=== PATIENT | male | born 1935 | race Caucasian/White ===

== ENCOUNTER 2018-01-12 20:26 | Inpatient (IN) | payer MEDICARE, SELFPAY ==
[2018-01-12 22:00] VITALS: BMI 24.3
[2018-01-12] MEDS ORDERED: Guaifenesin DM 100-10/5 ML UDCUP PO PRN (23:30)
[2018-01-12] MEDS ORDERED: Sodium Chloride 0.9% 1,000 ML IV SCH (23:30)
[2018-01-12] MEDS ORDERED: Senokot 8.6 MG TAB PO PRN (23:30)
[2018-01-12] MEDS ORDERED: Acetaminophen 325 MG TAB PO PRN (23:30)
[2018-01-12] MEDS ORDERED: Temazepam 15 MG CAP PO SCH (23:30)
[2018-01-12] MEDS ORDERED: Enoxaparin Sodium 80 MG/0.8 ML SYRINGE SC SCH (23:45)
[2018-01-12] MEDS ORDERED: Aspirin 325 MG TAB PO SCH (23:45)
[2018-01-12] MEDS: Nitroglycerin 2% Ointment 1 INCH/1 GM Packet TOP SCH (23:50)
[2018-01-13 01:17] LABS: Troponin I 8.974 ng/mL (< 0.028)
[2018-01-13] MEDS ORDERED: Clopidogrel Bisulfate 300 MG TAB PO SCH (02:00)
[2018-01-13 04:56] LABS: #Eosinphils 0.1 thou/uL (0.0-0.7); #Lymphocytes 1.2 thou/uL (1.20-3.40); #Monocytes 0.7 thou/uL (0.11-0.59); #Neutrophils 10.2 thou/uL (1.40-6.50); %Basophils 0.3 % (0.0-1.0); %Eosinophils 0.5 % (0.0-10.0); %Monocytes 5.7 % (0.0-10.0); %Neutrophils 83.6 % (42.0-75.0); Mean Corpuscular HGB CONC 34.5 g/dL (32.0-36.0); Mean Corpuscular Hemoglobin 31.2 pg (27.0-31.0); Mean Corpuscular Volume 90.4 fl (80.0-94.0); Mean Platelet Volume 7.6 fL (7.4-10.4); Platelet Count 234 thou/uL (130-400); RBC Distribution Width 11.1 % (11.5-14.5); Red Blood Cell (RBC) Count 4.18 mill/uL (4.70-6.10); White Blood Cell (WBC) Count 12.3 thou/uL (4.8-10.8)
[2018-01-13 05:17] LABS: ALT (SGPT) 32 U/L (8-55); AST (SGOT) 188 U/L (5-34); Albumin 3.7 g/dL (3.4-4.8); Alkaline Phosphatase 44 U/L (40-150); Anion Gap 14 mmol/L (10-20); BUN (Urea Nitrogen) 20 mg/dL (8.4-25.7); Bilirubin, Total 0.6 mg/dL (0.2-1.2); Calc. Creatinine Clearance 87 mL/min (70-130); Calcium 9.1 mg/dL (7.8-10.44); Carbon Dioxide 24 mmol/L (23-31); Chloride 103 mmol/L (98-107); Cholesterol 176 mg/dl (< 200 Desired); Estimated GFR-MDRD Greater than 90; Glucose 116 mg/dL (83-110); HDL Cholesterol 44 mg/dL (>60 Neg Risk); LDL Cholesterol, Calculated 112 mg/dL; Potassium 4.3 mmol/L (3.5-5.1); Protein, Total 6.7 g/dL (5.8-8.1); Sodium 137 mmol/L (136-145); Triglycerides 100 mg/dL (Less than 150)
[2018-01-13] MEDS ORDERED: Metoprolol Tartrate 5 MG/5 ML VIAL IVP SCH (05:24)
[2018-01-13] MEDS ORDERED: Magnesium 2 GM/NS 0.9% 100 ML 2 GM in Premix Bag 1 BAG IVPB SCH (05:30)
--- NOTE | 2018-01-13 06:13 | HP ---
REASON FOR ADMISSION: Non-STEMI. HISTORY OF PRESENTING ILLNESS: Patient gives history of flying from [facility] to [place] yesterday. He arrived yesterday evening after a 15-hour flight. The patient this morning developed retrosternal pressure-like sensation. He initially thought it was heartburn. This happened around 4:00 p.m. 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 No complaints of palpitation, PND, or orthopnea. Patient states he has had 3 stents placed to his heart, 2 years back in [place]. He also mentions that he has had myocardial infarction 17 years back. Patient was living in [place] and moved 10 years back to [facility]. The patient has a dry cough, but no expectoration. No fever. 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 PAST MEDICAL AND SURGICAL HISTORY: History of coronary artery disease 2 years back with 3 stents put-in in [place], has had ND 17 years ago, hypertension, dyslipidemia, left carotid endarterectomy done 10 years back. CURRENT MEDICATIONS: Norvasc 5 mg daily, aspirin 81 mg on every 2-3 days. He does not take it routinely due to him being very sensitive for ecchymosis on his forearms. He took Brilinta for 1 year after stents being put and stopped it. Carvedilol extended release 12.5 mg daily, Lipitor 40 mg daily, losartan with hydrochlorothiazide 50/12.5 mg daily. ALLERGIES: No known drug allergies. PERSONAL HISTORY: Does not abuse alcohol or drugs. No history of smoking. FAMILY HISTORY: Mother lived up to 94 years and of old age. Father of massive ND at the age of 45 years. Patient has 3 children, one is a physician, but works in a pharmaceutical [employer], has another kid who is contracts attorney and the third one is a CPA. All live in [facility]. REVIEW OF SYSTEMS: The following complete review of systems was negative, unless otherwise mentioned in the HPI or below: Constitutional: Weight loss or gain, ability to conduct usual activities. Skin: Rash, itching. Eyes: Double vision, pain. ENT/Mouth: Nose bleeding, neck stiffness, pain, tenderness. Cardiovascular: Palpitations, dyspnea on exertion, orthopnea. Respiratory: Shortness of breath, wheezing, cough, hemoptysis, fever, or night sweats. Gastrointestinal: Poor appetite, abdominal pain, heartburn, nausea, vomiting, constipation, or diarrhea. Genitourinary: Urgency, frequency, dysuria, nocturia. Musculoskeletal: Pain, swelling. Neurologic/Psychiatric: Anxiety, depression. Allergy/Immunologic: Skin rash, bleeding tendency. PHYSICAL EXAMINATION: GENERAL: The patient is an 82-year-old male who is currently not in any acute distress and is chest pain free at present. VITAL SIGNS: Blood pressure 166/74, pulse 74 per minute, respiratory rate is 20 per minute, temperature 97.7 degrees Fahrenheit, saturating 94% on room air. NECK: Supple, no elevated JVD. HEENT: Extraocular muscles intact. Pupils reacting to light. Oral cavity mucous membranes are moist. No exudates or congestion. CARDIOVASCULAR SYSTEM: S1, S2 heard. Regular rhythm. RESPIRATORY SYSTEM: Air entry 1+ bilateral. Scattered rhonchi plus no rales or wheezes. ABDOMEN: Soft, bowel sounds heard. No tenderness, rigidity, or guarding. EXTREMITIES: No peripheral edema or calf tenderness. VASCULAR SYSTEM: Peripheral pulses 2+ bilateral. No ischemic ulcerations or gangrene. CENTRAL NERVOUS SYSTEM: No gross focal deficits seen. Patient is alert, awake , oriented well. PSYCHIATRIC: The patient's mood is euthymic. No hallucinations or delusions. LABORATORY AND X-RAY FINDINGS: Please note the patient has had all his first set of lab work done at [facility]. Had a white count of 11 , H&H 13 and 39 with 66% neutrophils, platelet count is 245. First set of troponin was less than 0.05. Subsequent two sets of 1.0 on 8.974. CK-MB was 4.2. BNP was 360. Albumin 4.1. ALT 14, AST 22, amylase 59, total bilirubin 0.7. Serum glucose 100, BUN 18, creatinine 1.1. CK level is 50. Sodium 135, potassium 3.4, chloride 100, serum bicarbonate 27. CT angio chest done at [facility] showed no evidence of pulmonary embolus. There was mild ground glass change, which is nonspecific could be seen with pulmonary edema. Initial EKG showed normal sinus rhythm at around 70 beats per minute with T inversion seen in inferior wall leads II, III, aVF. There is also RBBB seen. A subsequent EKG done on arrival here shows similar findings. QRS duration was 140 milliseconds. CLINICAL IMPRESSION AND PLAN: Patient will be admitted to telemetry for non-ST elevation myocardial infarction with prior history of coronary artery disease and having had 3 stents put in, the last 2 years or so. 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 He has increasing troponin levels, but patient is currently asymptomatic. He has been given a full dose of aspirin. We will also load him with Plavix 300 mg 1 dose now and Lovenox 80 mg subcutaneous q.12 hourly starting now. He will be on normal saline at 60 mL per hour. Nitro paste half-inch q.8 hourly. We will continue his Coreg at 6.25 mg twice daily, Lipitor 40 mg at bedtime. Echo with 2D Doppler for LV function and cardiology consultation with Dr. Moss will be requested. Please note I have seen and examined patient on 01/12/2018. CODE STATUS: FULL and power of contracts attorney is his children here in [place]. ROSA
[2018-01-13] MEDS ORDERED: Heparin 10,000 UNITS/1 ML VIAL ONE ×3 (06:43→08:50)
[2018-01-13] MEDS ORDERED: Heparin 0 ML ONE (06:43)
[2018-01-13] MEDS ORDERED: Lidocaine 1% (PF) 30 ML VIAL ONE ×2 (06:44→07:40)
[2018-01-13] MEDS ORDERED: Sodium Chloride 0.9% 1,000 ML IV SCH ×2 (07:30→09:05)
[2018-01-13] MEDS ORDERED: Communication Order-Pharmacy FS SCH (07:30)
[2018-01-13] MEDS ORDERED: Fentanyl 100 MCG/2 ML VIAL ONE ×4 (07:40→11:26)
[2018-01-13] MEDS ORDERED: Midazolam HCl 2 mg/2 ml Vial ONE ×4 (07:41→10:27)
[2018-01-13] MEDS: Albuterol Sulfate 1.25 MG/3 ML NEB NEB SCH ×3 (07:47→22:42)
[2018-01-13] MEDS ORDERED: Aspirin 325 MG TAB PO SCH (08:00)
--- NOTE | 2018-01-13 08:00 | CON ---
DATE OF CONSULTATION: 01/13/2018 HISTORY: Luis Carlos Valdez is an 82-year-old white male who initially was from [facility]. He states that he had a myocardial infarction 30 years ago and was told that one of his vessels was totally occluded, but filled via collaterals and nothing further was done. Then 2 years ago he said he again had a myocardial infarction and underwent catheterization and had 3 stents placed. He is uncertain if these were different arteries or all in the same artery. He was placed on Brilinta and took this for 1 year. Since that time, he only takes aspirin intermittently and may stop up to a week at a time due to arm bruising. He has not had any chest discomfort until yesterday. He arrived in [place] after a 15 hour flight from [facility] and came to [employer] for business. Then, at 4:00 p.m., he had onset of central chest burning extending into the epigastric area, but no shortness of breath, nausea, vomiting or diaphoresis. He went to [facility] ER and then was transferred here. He has had positive cardiac enzymes. He also has had several episodes of nonsustained ventricular tachycardia up to 14 beats. PAST MEDICAL HISTORY: Coronary artery disease, hypertension, hypercholesterolemia. No history of diabetes. OPERATIONS: Left carotid endarterectomy. MEDICATIONS: Norvasc 5 mg daily, aspirin 81 mg which he does not take on a daily basis, carvedilol extended release 12.5 daily, losartan/ hydrochlorothiazide 50/12.5 daily, presumably atorvastatin 40 mg daily. ALLERGIES: None. SOCIAL HISTORY: Does not smoke or drink. FAMILY HISTORY: Father of myocardial infarction at age 45. REVIEW OF SYSTEMS: Twelve point review of systems otherwise unremarkable. PHYSICAL EXAMINATION: VITAL SIGNS: Blood pressure 143/75, pulse 76. HEENT: PERRL. NECK: Supple. LUNGS: Chest is clear. CARDIAC: S1, S2 normal, without any S3, S4 or murmurs. Carotid upstroke is normal without bruits. Dorsalis pedis and posterior tibial pulses are intact. ABDOMEN: Normal bowel sounds. EXTREMITIES: Revealed no clubbing, cyanosis or edema. NEUROLOGIC: Grossly intact. LABORATORY: EKGs revealed normal sinus rhythm with an inferior infarction and right bundle branch block. No acute changes were seen. Hemoglobin 13.0, hematocrit 37.8, white count 12,300, platelets 234,000. Sodium 137, potassium 4.3, chloride 103, carbon dioxide 24, BUN 20, creatinine 0.8, glucose 116, AST is elevated at 188, ALT 32. Troponin I is up to 8.974. Cholesterol 176, triglycerides 100, HDL 44, LDL 112. IMPRESSION: 1. [id number] elevation myocardial infarction with troponin of 8.974. 2. Nonsustained ventricular tachycardia, 3 episodes. 3. History of myocardial infarction 30 years ago with totally occluded vessel with collateral filling according to the patient. 4. Placement of 3 stents in [facility] 2 years ago. 5. Hypertension. 6. Hyperlipidemia with LDL of 112. 7. Noncompliance with Aspirin. RECOMMENDATIONS: It was recommended to Mr. Valdez that he undergo cardiac catheterization. Risks of this were discussed including , myocardial infarction, dye reaction, vascular injury, CVA, transfusion, limb loss, renal loss, etc. Risk of intervention with PTCA and stent placement were discussed including , myocardial infarction, emergent CABG, restenosis, stent thrombosis, vessel perforation, etc. He understands and agrees to proceed. ROSA
[2018-01-13] MEDS ORDERED: Aggrastat 12.5 MG/250 ML 250 ML ONE (08:07)
[2018-01-13] MEDS ORDERED: TICAGRELOR 90 MG TABLET ONE (08:13)
[2018-01-13] MEDS ORDERED: Enoxaparin Sodium 80 MG/0.8 ML SYRINGE SC SCH ×2 (09:00)
[2018-01-13] MEDS ORDERED: Morphine 4 MG/ML Carpuject SLOW IVP PRN (09:02)
[2018-01-13] MEDS ORDERED: Nitroglycerin 0.4 MG TAB (25 Tab Bottle) SL PRN (09:02)
[2018-01-13] MEDS ORDERED: Milk Of Magnesia 30 ML UDCUP PO PRN (09:02)
[2018-01-13] MEDS ORDERED: Mag-Al 1200 mg/1200 mg/30 ML UDCUP PO PRN (09:02)
[2018-01-13] MEDS ORDERED: Aggrastat 12.5 MG/250 ML 250 ML IVPB SCH (09:15)
[2018-01-13] MEDS ORDERED: Amlodipine 5 MG TAB PO SCH ×2 (09:15)
[2018-01-13] MEDS ORDERED: Hydrocortisone Sod Succ/PF 100 mg/2 ml Vial ONE (09:42)
[2018-01-13] MEDS ORDERED: diphenhydrAMINE 50 MG/ML VIAL ONE ×2 (09:42→13:04)
[2018-01-13] MEDS ORDERED: Morphine 4 MG/ML VIAL ONE (09:46)
[2018-01-13] MEDS ORDERED: Furosemide 40 MG/4 ML VIAL ONE (09:51)
[2018-01-13] MEDS ORDERED: Iopamidol 370 76% 100 ML VIAL ONE (10:02)
[2018-01-13] MEDS ORDERED: Iopamidol 370 76% 50 ML VIAL FS ONE (10:02)
--- NOTE | 2018-01-13 10:08 | PDOC.PN ---
- Subjective Encounter Start Date: 01/13/18 Encounter Start Time: 10:07 82 M admitted with chest pain and elevated troponin- NSTEMI. Taken to liaison inspection laboratory assistant today for catheterization. - Objective Resuscitation Status: Resuscitation Status FULL:Full Resuscitation MAR Reviewed: Yes Vital Signs & Weight: Vital Signs (12 hours) Temp Pulse Resp BP BP Pulse Ox 01/13/18 07:36 98.0 F 81 18 156/69 H 96 01/13/18 07:10 98.0 F 81 18 156/69 H 96 01/13/18 05:43 76 143/75 H 01/13/18 05:36 76 145/68 H 01/13/18 05:12 78 18 141/68 H 96 01/13/18 03:15 98.2 F 83 16 154/75 H 94 L 01/12/18 23:30 94 L 01/12/18 23:25 98.0 F 75 20 150/70 H 94 L 01/12/18 22:10 94 L Weight Weight 184 lb 14.4 oz I&O: 01/12/18 01/13/18 01/14/18 06:59 06:59 06:59 Intake Total 625 100 Output Total 400 Balance 225 100 Result Diagrams: 01/13/18 04:01 01/13/18 04:01 Phys Exam - Physical Examination Constitutional: NAD HEENT: moist MMs, sclera anicteric, oral pharynx no lesions Neck: supple, full ROM Respiratory: no wheezing, no rales, no rhonchi, clear to auscultation bilateral Cardiovascular: RRR, no significant murmur, no rub Gastrointestinal: soft, non-tender, no distention, positive bowel sounds Musculoskeletal: no edema, pulses present Neurological: non-focal, moves all 4 limbs Psychiatric: normal affect, A&O x 3 Skin: no rash, normal turgor Dx/Plan (1) NSTEMI (non-ST elevated myocardial infarction) Code(s): I21.4 - NON-ST ELEVATION (NSTEMI) MYOCARDIAL INFARCTION Status: Acute Comment: Scheduled for cardiac catheterization. Cardiology on board. Recs appreciated. (2) CAD (coronary artery disease) Code(s): I25.10 - ATHSCL HEART DISEASE OF [place] CORONARY ARTERY W/O ANG PCTRS Status: Chronic Qualifiers: Coronary Disease-Associated Artery/Lesion type: unspecified vessel or lesion type [place] vs. transplanted heart: [place] heart Associated angina: with unstable angina Qualified Code(s): I25.110 - Atherosclerotic heart disease of [place] coronary artery with unstable angina pectoris (3) S/P angioplasty with stent Code(s): Z95.9 - PRESENCE OF CARDIAC AND VASCULAR IMPLANT AND GRAFT, UNSP Status: Chronic (4) HTN (hypertension) Code(s): I10 - ESSENTIAL (PRIMARY) HYPERTENSION Status: Chronic Qualifiers: Hypertension type: essential hypertension Qualified Code(s): I10 - Essential (primary) hypertension Comment: Fair control but not at goal. Will resume home medications. (5) HLD (hyperlipidemia) Code(s): E78.5 - HYPERLIPIDEMIA, UNSPECIFIED Status: Chronic Qualifiers: Hyperlipidemia type: mixed hyperlipidemia Qualified Code(s): E78.2 - Mixed hyperlipidemia - Plan cont current plan of care, out of bed/ambulate, DVT proph w/lovenox * . Review of Systems - Medications/Allergies Allergies/Adverse Reactions: Allergies Allergy/AdvReac Type Severity Reaction Status Date / Time No Known Allergies Allergy Verified 01/12/18 21:25 Medications: Current Medications Acetaminophen (Tylenol) 650 mg PO Q4H PRN PRN Reason: Headache/Fever or Pain Al Hydroxide/Mg Hydroxide (Maalox) 30 ml PO Q3H PRN PRN Reason: Indigestion Albuterol Sulfate (Albuterol Sulfate) 1.25 mg NEB [id number] JOURDAN Last Admin: 01/13/18 07:47 Dose: Not Given Amlodipine Besylate (Norvasc) 5 mg PO DAILY [facility] Aspirin (Aspirin Chewable) 81 mg PO DAILY [facility] Atorvastatin Calcium (Lipitor) 80 mg PO HS [facility] Carvedilol (Coreg) 6.25 mg PO BID-WM [facility] Famotidine (Pepcid) 20 mg PO BID JOURDAN Guaifenesin/Dextromethorphan (Robitussin Dm) 15 ml PO Q4H PRN PRN Reason: Cough HCTZ/Losartan Potassium (Hyzaar 50/12.5) 1 tab PO DAILY JOURDAN Tirofiban/Sodium Chloride (Aggrastat 12.5 Mg/250 Ml) 250 mls @ 0 mls/hr IVPB INF JOURDAN; As Directed PRN Reason: Protocol Stop: 01/14/18 09:00 Sodium Chloride (Normal Saline 0.9%) 1,000 mls @ 125 mls/hr IV .Q8H JOURDAN Stop: 01/13/18 15:00 Magnesium Hydroxide (Milk Of Magnesium) 30 ml PO Q12H PRN PRN Reason: Constipation Miscellaneous Information (Communication Order-Pharmacy) 0 each FS ASDIR JOURDAN Morphine Sulfate (Morphine) 2 mg SLOW IVP Q4H PRN PRN Reason: Moderate Pain (4-6) Morphine Sulfate (Morphine) 4 mg SLOW IVP Q4H PRN PRN Reason: Severe Pain (7-10) Nitroglycerin (Nitrostat) 0.4 mg SL Q5MIN PRN PRN Reason: Chest Pain Senna (Senokot) 2 tab PO HSPRN PRN PRN Reason: Constipation Sodium Chloride (Flush - Normal Saline) 10 ml IVF Q12HR JOURDAN Sodium Chloride (Flush - Normal Saline) 10 ml IVF PRN PRN PRN Reason: Saline Flush Ticagrelor (Brilinta) 90 mg PO BID JOURDAN
[2018-01-13] MEDS ORDERED: Propofol BOLUS 1,000 MG/100 ML VIAL IV PRN (10:32)
[2018-01-13] MEDS ORDERED: DISCONTINUE PREVIOUS NARCOTIC PAIN MEDICATIONS AND BENZODIAZEPINES FS SCH (10:32)
[2018-01-13] MEDS ORDERED: Fentanyl BOLUS 250 ML IVPB PRN (10:32)
[2018-01-13] MEDS ORDERED: Propofol 1,000 MG/100 ML VIAL IV PRN (10:32)
[2018-01-13] MEDS ORDERED: Morphine 4 MG/ML VIAL SLOW IVP PRN (10:32)
[2018-01-13] MEDS ORDERED: Lorazepam 2 MG/ML VIAL SLOW IVP PRN (10:32)
[2018-01-13] MEDS ORDERED: fentaNYL Citrate/PF 2,000 MCG in Sodium Chloride 0.9% 60 ML IV SCH (10:33)
[2018-01-13] MEDS ORDERED: Succinylcholine Chloride 20 MG/ML 10 ml SYRINGE FS ONE (10:45)
[2018-01-13] MEDS ORDERED: Sodium Chloride For Inhalation 0.9% 3 ML NEB ONE ×2 (11:35→11:37)
--- NOTE | 2018-01-13 11:56 | RAD ---
CHEST ONE VIEW: HISTORY: Intubation. COMPARISON: None. FINDINGS: Extensive interstitial and developing alveolar opacities throughout the lungs. The patient is intuba levon with the endotracheal tube tip at the level of the clavicles. The enteric tube tip is at the gas tric body. The heart size is at the upper limits of normal. No pneumothorax or large effusion. IMPRESSION: Extensive interstitial and developing alveolar opacities throughout the lungs, which can be seen with acute edema, acute respiratory distress syndrome, or hemorrhage. POS: [facility]
[2018-01-13] MEDS ORDERED: Pantoprazole 40 MG VIAL IVP SCH (12:00)
[2018-01-13] MEDS ORDERED: Labetalol HCl 100 MG/20 ML VIAL SLOW IVP PRN (12:23)
[2018-01-13] MEDS ORDERED: hydrALAZINE 20 MG/ML VIAL SLOW IVP PRN (12:23)
--- NOTE | 2018-01-13 12:33 | CON ---
DATE OF CONSULTATION: 01/13/2018 SERVICE: Pulmonary Medicine. REASON FOR CONSULTATION: Flash pulmonary edema. HISTORY OF PRESENT ILLNESS: The patient is an 82-year-old white male with past medical history signi ficant for some form of coronary artery disease. He presented to the emergency department because of a non-ST elevation [place]. He recently had significant travel. After he got here from [place], he start ed having retrosternal chest discomfort. He presented to the Emergency Department and the cardiac en zymes were slightly elevated. He went down for cardiac catheterization today. Following this study, he had abrupt decompensation. He went into it on very little oxygen, but then required almost 100% oxygen with a PEEP of 10. He started bringing up frothy pulmonary edema. This was associated with v isra elevated blood pressures. Subsequently, reintubated, and will be arriving in the ICU shortly. PAST MEDICAL HISTORY: 1. Coronary artery disease. 2. Hypertension. 3. Dyslipidemia. PAST SURGICAL HISTORY: 1. Percutaneous coronary intervention x3. 2. Carotid endarterectomy. ALLERGIES: No known drug allergies. MEDICATIONS: List of his inpatient medications were reviewed and heavily modified. SOCIAL HISTORY: Negative for alcohol, tobacco or illicit drug use. FAMILY HISTORY: Noncontributory. ALLERGIES: No known drug allergies. REVIEW OF SYSTEMS: This cannot be obtained as the patient is currently intubated and sedated. PHYSICAL EXAMINATION: VITAL SIGNS: Afebrile, pulse 81, blood pressure 156/96, respirations 18, saturation 96% on room air. GENERAL: The patient is intubated and sedated. He responds appropriately to noxious stimuli in uppe r and lower extremities. HEENT: Pupils are pinpoint, but do react sluggishly. Normocephalic, atraumatic. Sclerae are white. Conjunctivae pink. Oral mucosa is moist without lesions. LUNGS: Frothy pulmonary edema is in the circuit. Excellent air entry. There is slightly prolonged expiratory phase. Crackles are present throughout bilateral lung wong. HEART: Normal rate and regular. ABDOMEN: Soft, nontender, nondistended. Bowel sounds are positive. MUSCULOSKELETAL: No cyanosis or clubbing. There is no pitting in the bilateral lower extremities. NEUROLOGIC: Grossly nonfocal. LABORATORY DATA: WBC 12.3, hemoglobin 13.0, platelets 234,000. ACT 236. Basic metabolic profile an d liver function studies are unremarkable. Cardiac enzymes were 1.0 and is now 8.9. Magnesium falls within the normal limits. ASSESSMENT: 1. Acute hypoxic respiratory failure. 2. Flash pulmonary edema. 3. Non-ST elevation myocardial infarction. 4. Nonsustained ventricular tachycardia, 3 episodes. 5. History of myocardial infarction with coronary artery disease. 6. Hypertensive emergency. PLAN: The patient will remain in the ICU. We will decrease FiO2 and PEEP through time. Tight blood pressure control is warranted. We will get an echocardiogram with particular focus on the mitral va lve. Pulmonary or Critical Care will continue to follow very closely while patient remains in the [facility]. CRITICAL CARE TIME: 30 minutes.
[2018-01-13] MEDS ORDERED: Heparin 10,000 UNITS/ 10 ML VIAL ONE (13:04)
--- NOTE | 2018-01-13 13:21 | EKG ---
Test Reason : TIME REPEAT Blood Pressure : / mmHG Vent. Rate : 083 BPM Atrial Rate : 083 BPM P-R Int : 164 ms QRS Dur : 140 ms QT Int : 414 ms P-R-T Axes : 064 085 048 degrees QTc Int : 486 ms Normal sinus rhythm Right bundle branch block Possible Inferior infarct (cited on or before 12-JAN-2018) Abnormal ECG When compared with ECG of 13-JAN-2018 10:12, (Unconfirmed) No significant change was found Confirmed by DECLAN OLSON ([id number]) on 01/13/2018 1:21:30 PM Referred By: RADHA Confirmed By:DECLAN OLSON
--- NOTE | 2018-01-13 13:28 | EKG ---
Test Reason : POST Blood Pressure : / mmHG Vent. Rate : 101 BPM Atrial Rate : 101 BPM P-R Int : 170 ms QRS Dur : 138 ms QT Int : 396 ms P-R-T Axes : 073 094 040 degrees QTc Int : 513 ms Sinus tachycardia Possible Left atrial enlargement Right bundle branch block Possible Inferior infarct (cited on or before 12-JAN-2018) Abnormal ECG When compared with ECG of 13-JAN-2018 01:49, (Unconfirmed) No significant change was found Confirmed by DECLAN OLSON ([id number]) on 01/13/2018 1:28:14 PM Referred By: RADHA Confirmed By:DECLAN OLSON
[2018-01-13 13:32] LABS: Actual Bicarbonate (HCO3a) 21.4 mEq/L (22-28); Base Excess (BEa) -4.8 mEq/L (-2.0 to +3.0); CO2 Tension 43.8 mmHg (35.0-45.0); Hematocrit-ABG 45.1 % (42.0-52.0); Hemoglobin (Hb) 14.1 g/dL (14.0-18.0); O2 Tension (PaO2) 85.4 mmHg (> 60.0); pH, Arterial 7.31 (7.35-7.45)
[2018-01-13 13:33] LABS: Calcium, Ionized 1.1 mmol/L (1.12-1.30); Puncture Site LRA
--- NOTE | 2018-01-13 13:33 | EKG ---
Test Reason : Blood Pressure : / mmHG Vent. Rate : 081 BPM Atrial Rate : 081 BPM P-R Int : 168 ms QRS Dur : 144 ms QT Int : 430 ms P-R-T Axes : 074 085 017 degrees QTc Int : 499 ms Poor data quality, interpretation may be adversely affected Normal sinus rhythm Right bundle branch block Inferior infarct (cited on or before 12-JAN-2018) Abnormal ECG When compared with ECG of 12-JAN-2018 22:16, (Unconfirmed) Questionable change in initial forces of Inferior leads Confirmed by DECLAN OLSON ([id number]) on 01/13/2018 1:33:26 PM Referred By: IZZY Confirmed By:DECLAN OLSON
--- NOTE | 2018-01-13 13:34 | EKG ---
Test Reason : Blood Pressure : / mmHG Vent. Rate : 076 BPM Atrial Rate : 076 BPM P-R Int : 146 ms QRS Dur : 138 ms QT Int : 440 ms P-R-T Axes : 040 065 012 degrees QTc Int : 495 ms Normal sinus rhythm Right bundle branch block Inferior infarct , age undetermined Abnormal ECG No previous ECGs available Confirmed by DECLAN OLSON ([id number]) on 01/13/2018 1:34:25 PM Referred By: VLADIMIR Confirmed By:DECLAN OLSON
[2018-01-13] MEDS: Carvedilol 6.25 MG TAB PO SCH ×2 (13:39→18:05)
[2018-01-13] MEDS: Famotidine 20 MG TAB PO SCH ×2 (13:39→21:08)
[2018-01-13] MEDS: Sodium Chloride 0.9% 1,000 ML IV SCH (13:44)
[2018-01-13] MEDS ORDERED: DOPamine 400 MG/D5W 250 ML 250 ML IVPB SCH (13:45)
[2018-01-13 15:13] LABS: Troponin I Greater than 45.000 ng/mL (< 0.028)
[2018-01-13 15:29] LABS: Hemoglobin 13.7 g/dL (14.0-18.0)
[2018-01-13] MEDS: Nitroglycerin 2% Ointment 1 INCH/1 GM Packet TOP SCH (16:07)
--- NOTE | 2018-01-13 19:07 | CCL ---
PROCEDURE: 1, Left heart catheterization 2. Selective coronary arteriography 3. Left ventriculography 4. Thrombectomy of the obtuse marginal 1 and stent placement in the obtuse marginal 1. INDICATION: Non-STEMI. Patient was brought to cardiac slab puller and the right groin was prepped and draped in usual fashion. 1% lidocaine was infiltrated. A 6-Honduran sheath was placed into the right femoral artery. A 6-Honduran Preet left 4 followed by 6- [place] Preet right 4 was used for coronary arteriography. A 6-Honduran left 4 guide was inserted along with floppy choice wire. This was advanced into the distal first obtuse marginal. A Pronto catheter was used with removal of large amount of thrombotic material. The Pronto catheter was then removed and the thrombus appeared to have totally cleared. Synergy 3.0 x 12 mm stent was then positioned and deployed in the first obtuse marginal. This was postdilated with Emerge NC 3.5 x 8 mm balloon. Final result was excellent. The guide catheter, wire and balloon were removed. A 6-Honduran angulated pigtail was inserted and pressure obtained. Left ventriculogram was performed using 30 mL of contrast at 12 mL per second in an LYNN 30 degree projection. Pressure obtained and the pigtail was removed. Sheath sutured in place. During the procedure, the patient received Versed 1 mg and fentanyl 25 mg. Also, he was given Brilinta 180 mg p.o., multiple doses of intravenous heparin and was started on Aggrastat. The sheath sutured in place. The patient was transferred to the PCU. RESULTS: PRESSURES Aorta 148/58, mean of 98. Left ventricle 152/33. CORONARY ARTERIOGRAPHY: 1. Left main was normal. 2. The LAD had a 60% mid stenosis and a 50% distal stenosis. 3. The circumflex had a stent extending from the proximal circumflex into the first obtuse marginal. There was an 80% lesion in the proximal part of the first obtuse marginal. There was a large amount of thrombotic material. The thrombus was pproximately 3-4 cm long and distal to the stenosis. 4. The ramus had a 20% lesion. 5. The right coronary was totally occluded and filled retrograde from the left (occurred at approximately 52 years of age). INTERVENTION RESULTS: The initial first obtuse marginal had an 80% stenosis with large amount of thrombotic material. The thrombotic material was removed and the lesion was reduced to 0%. LEFT VENTRICULOGRAM: There was mild global hypokinesis with inferobasal akinesis and moderate mitral regurgitation. Ejection fraction was 35-40%. IMPRESSION: 1. Three-vessel coronary artery disease. 2. Moderate left ventricular dysfunction. 3. Moderate mitral regurgitation. 4. Successful thrombectomy and drug-eluting stent placement in the first obtuse marginal. MTDD
[2018-01-13] MEDS ORDERED: Atorvastatin Calcium 40 MG TAB PO SCH (21:00)
[2018-01-13] MEDS: Pantoprazole 40 MG VIAL IVP SCH (21:07)
[2018-01-13] MEDS: Atorvastatin Calcium 40 MG TAB PO SCH (21:08)
[2018-01-13] MEDS: TICAGRELOR 90 MG TABLET PO SCH (21:22)
[2018-01-14 05:47] LABS: #Eosinphils 0.1 thou/uL (0.0-0.7); #Monocytes 1.2 thou/uL (0.11-0.59); #Neutrophils 12.9 thou/uL (1.40-6.50); %Basophils 0.2 % (0.0-1.0); %Eosinophils 0.3 % (0.0-10.0); %Lymphocytes 12.1 % (21.0-51.0); %Monocytes 7.5 % (0.0-10.0); %Neutrophils 79.8 % (42.0-75.0); Hemoglobin 11.3 g/dL (14.0-18.0); Mean Corpuscular HGB CONC 33.7 g/dL (32.0-36.0); Mean Corpuscular Hemoglobin 30.8 pg (27.0-31.0); Mean Corpuscular Volume 91.5 fl (80.0-94.0); Mean Platelet Volume 8.1 fL (7.4-10.4); Platelet Count 205 thou/uL (130-400); RBC Distribution Width 11.6 % (11.5-14.5); Red Blood Cell (RBC) Count 3.66 mill/uL (4.70-6.10); White Blood Cell (WBC) Count 16.2 thou/uL (4.8-10.8)
[2018-01-14] MEDS: Sodium Chloride 0.9% 1,000 ML IV SCH ×2 (05:57→05:58)
[2018-01-14 06:13] LABS: ALT (SGPT) 31 U/L (8-55); AST (SGOT) 123 U/L (5-34); Alkaline Phosphatase 32 U/L (40-150); Anion Gap 13 mmol/L (10-20); BUN (Urea Nitrogen) 25 mg/dL (8.4-25.7); Bilirubin, Total 0.7 mg/dL (0.2-1.2); Calc. Creatinine Clearance 73 mL/min (70-130); Calcium 8.2 mg/dL (7.8-10.44); Carbon Dioxide 21 mmol/L (23-31); Chloride 108 mmol/L (98-107); Estimated GFR-MDRD 75; Globulin 2.4 g/dL (2.4-3.5); Glucose 106 mg/dL (83-110); Potassium 4.4 mmol/L (3.5-5.1); Protein, Total 5.4 g/dL (5.8-8.1); Sodium 138 mmol/L (136-145)
[2018-01-14] MEDS: Albuterol Sulfate 1.25 MG/3 ML NEB NEB SCH ×3 (06:52→22:13)
[2018-01-14 08:35] LABS: CKMB 53.8 ng/mL (0-6.6); Troponin I 40.892 ng/mL (< 0.028)
--- NOTE | 2018-01-14 08:42 | RAD ---
PORTABLE CHEST: DATE: 01/14/18. PROVIDED CLINICAL HISTORY: Pulmonary edema. FINDINGS: Comparison is made with the examination performed 01/13/18. The cardiac silhouette appears enlarged w hich may be at least partially on the basis of portable technique. Endotracheal tube and enteric cat heter are again seen in similar positions. There is persistent but improved bilateral airspace disea se. There is no pleural fluid or pneumothorax apparent. IMPRESSION: Persistent but improved findings compatible with pulmonary edema. POS: OFF
[2018-01-14] MEDS ORDERED: Amlodipine 5 MG TAB PO SCH (09:00)
[2018-01-14] MEDS ORDERED: Clopidogrel Bisulfate 75 MG TAB PO SCH (09:00)
--- NOTE | 2018-01-14 10:47 | PRG ---
DATE OF SERVICE: 01/14/2018 SERVICE: Pulmonary Medicine. INTERVAL HISTORY: The patient had a dramatic improvement in his respiratory status overnight. His oxygen saturations are now excellent on just basically 21 % FiO2 and a PEEP of 5. He is awake and alert and cooperative on mechanical ventilation. He is on a spontaneous breathing trial currently. He currently denies any fevers, chills, nausea or vomiting. There were no significant overnight events. PHYSICAL EXAMINATION: VITAL SIGNS: Afebrile, pulse 105, blood pressure 141/57, respirations 14, saturation is 97% on 21% FiO2 and a PEEP of 5. GENERAL: Patient is intubated, but wide awake. He is in no apparent distress. HEENT: Normocephalic, atraumatic. Sclerae are white, conjunctivae pink. Oral and nasal mucosa is moist without lesions. LUNGS: Excellent air entry. There is no prolonged expiratory phase, wheezing or rhonchi present. Crackles are present. HEART: Normal rate, regular. ABDOMEN: Soft, nontender, nondistended. Bowel sounds are positive. MUSCULOSKELETAL: No cyanosis or clubbing. There is no pitting edema. GENITOURINARY: Villalta catheter in place. NEUROLOGIC: Grossly nonfocal. LABORATORY DATA: WBC 16.2, hemoglobin 11.3, platelets 205. Basic metabolic profile and liver function studies are essentially unremarkable with an AST that is downtrending. Troponin is also downtrending to below 41. IMAGING: Echocardiogram demonstrates an ejection fraction of 30%-35% with akinetic motion of the posterior basal, inferior todd noted on the left ventricle. Mild mitral regurgitation is present. Chest x-ray demonstrates improvement in pulmonary edema pattern. There is still some persistent pleural parenchymal opacifications present. ASSESSMENT: 1. Acute hypoxic respiratory failure, resolved. 2. Flash pulmonary edema. 3. Acute systolic heart failure. 4. [id number] myocardial infarction. 5. Hypertensive emergency. DISCUSSION AND PLAN: IV fluids will be interrupted once again. We will extubate the patient. Once we do this, if he does well, we will feed him and start mobilizing him. Villalta catheter to be removed today. I will interrupt our Lasix, because the patient is essentially euvolemic. We will just try to maintain good blood pressure control moving forward. Pulmonary Critical Care will continue to follow along. If he does fantastic into the afternoon, he can be considered for transition to the telemetry unit. Critical care time: 30 minutes. ROSA
--- NOTE | 2018-01-14 12:25 | EKG ---
Test Reason : Blood Pressure : / mmHG Vent. Rate : 074 BPM Atrial Rate : 074 BPM P-R Int : 158 ms QRS Dur : 144 ms QT Int : 456 ms P-R-T Axes : 071 069 039 degrees QTc Int : 506 ms Normal sinus rhythm Right bundle branch block Inferior infarct (cited on or before 12-JAN-2018) Abnormal ECG When compared with ECG of 13-JAN-2018 13:34, No significant change was found Confirmed by DECLAN OLSON ([id number]) on 01/14/2018 12:24:31 PM Referred By: RADHA Confirmed By:DECLAN OLSON
--- NOTE | 2018-01-14 12:26 | PDOC.PN ---
- Subjective Encounter Start Date: 01/14/18 Encounter Start Time: 12:30 Patient seen and examined. He was admitted for NSTEMi, had cardiac catheterization following which he decompensated with flash pulmonary edema and hypoxic respiratory failure. He was intubated 01/13. Extubated today and is alert and well oriented. Only complaint is a sore throat. - Objective Resuscitation Status: Resuscitation Status FULL:Full Resuscitation MAR Reviewed: Yes Vital Signs & Weight: Vital Signs (12 hours) Temp Pulse Resp BP Pulse Ox 01/14/18 09:23 105 H 14 97 01/14/18 08:00 98.2 F 80 23 H 94 L 01/14/18 07:06 64 149/62 H 01/14/18 06:52 77 13 98 01/14/18 06:00 17 01/14/18 04:00 97.6 F 17 01/14/18 02:41 70 129/57 L 01/14/18 02:00 17 Weight Weight 192 lb 0.362 oz Most Recent Monitor Data Heart Rate from ECG 76 NIBP 141/53 NIBP BP-Mean 102 Respiration from ECG 15 SpO2 91 I&O: 01/13/18 01/14/18 01/15/18 06:59 06:59 06:59 Intake Total 625 2433 Output Total 400 1725 90 Balance 225 708 -90 Result Diagrams: 01/14/18 04:26 01/14/18 04:26 Phys Exam - Physical Examination Constitutional: NAD HEENT: moist MMs, sclera anicteric, oral pharynx no lesions Neck: supple, full ROM Respiratory: no wheezing, no rales, no rhonchi, clear to auscultation bilateral Cardiovascular: RRR, no significant murmur, no rub Gastrointestinal: soft, non-tender, no distention, positive bowel sounds Musculoskeletal: no edema, pulses present Neurological: non-focal, moves all 4 limbs Psychiatric: normal affect, A&O x 3 Skin: no rash, normal turgor Dx/Plan (1) NSTEMI (non-ST elevated myocardial infarction) Code(s): I21.4 - NON-ST ELEVATION (NSTEMI) MYOCARDIAL INFARCTION Status: Acute Comment: Stable, chest pain free. s/p catheterization. Cards on board, recs appreciated. (2) CAD (coronary artery disease) Code(s): I25.10 - ATHSCL HEART DISEASE OF [place] CORONARY ARTERY W/O ANG PCTRS Status: Chronic Qualifiers: Coronary Disease-Associated Artery/Lesion type: unspecified vessel or lesion type [place] vs. transplanted heart: [place] heart Associated angina: with unstable angina Qualified Code(s): I25.110 - Atherosclerotic heart disease of [place] coronary artery with unstable angina pectoris (3) S/P angioplasty with stent Code(s): Z95.9 - PRESENCE OF CARDIAC AND VASCULAR IMPLANT AND GRAFT, UNSP Status: Chronic (4) HTN (hypertension) Code(s): I10 - ESSENTIAL (PRIMARY) HYPERTENSION Status: Chronic Qualifiers: Hypertension type: essential hypertension Qualified Code(s): I10 - Essential (primary) hypertension Comment: Fair control but not at goal. Will resume home medications. (5) HLD (hyperlipidemia) Code(s): E78.5 - HYPERLIPIDEMIA, UNSPECIFIED Status: Chronic Qualifiers: Hyperlipidemia type: mixed hyperlipidemia Qualified Code(s): E78.2 - Mixed hyperlipidemia (6) Acute systolic (congestive) heart failure Code(s): I50.21 - ACUTE SYSTOLIC (CONGESTIVE) HEART FAILURE Status: Acute Comment: EF 30-35% w sclerotic aortic valve. (7) Hypertensive emergency Code(s): I16.1 - HYPERTENSIVE EMERGENCY Status: Resolved (8) Flash pulmonary edema Code(s): J81.0 - ACUTE PULMONARY EDEMA Status: Resolved (9) Acute respiratory failure with hypoxia Code(s): J96.01 - ACUTE RESPIRATORY FAILURE WITH HYPOXIA Status: Resolved - Plan cont current plan of care, respiratory therapy, DVT proph w/lovenox Continue ASA, Statins, Brilinta. Review of Systems - Medications/Allergies Allergies/Adverse Reactions: Allergies Allergy/AdvReac Type Severity Reaction Status Date / Time No Known Allergies Allergy Verified 01/12/18 21:25 Medications: Current Medications Acetaminophen (Tylenol) 650 mg PO Q4H PRN PRN Reason: Headache/Fever or Pain Al Hydroxide/Mg Hydroxide (Maalox) 30 ml PO Q3H PRN PRN Reason: Indigestion Albuterol Sulfate (Albuterol Sulfate) 1.25 mg NEB V2AM-EI JOURDAN Last Admin: 01/14/18 06:52 Dose: 1.25 mg Aspirin (Aspirin Chewable) 81 mg PO DAILY [facility] Atorvastatin Calcium (Lipitor) 80 mg PO HS [facility] Last Admin: 01/13/18 21:08 Dose: 80 mg Carvedilol (Coreg) 6.25 mg PO BID-[facility] Last Admin: 01/13/18 18:05 Dose: Not Given Famotidine (Pepcid) 20 mg PO BID [facility] Last Admin: 01/13/18 21:08 Dose: Not Given Hydralazine HCl (Apresoline) 20 mg SLOW IVP Q15MIN PRN PRN Reason: SBP GREATER THAN 160 Fentanyl Citrate (Fentanyl Bolus) 250 mls @ 0 mls/hr IVPB PRN PRN; As Directed PRN Reason: Breakthrough pain/agitation Stop: 02/12/18 10:32 Fentanyl Citrate 2,000 mcg/ (Sodium Chloride) 100 mls @ 0 mls/hr IV INF [facility]; Per Protocol PRN Reason: Protocol Stop: 02/12/18 10:33 Dopamine HCl/Dextrose (Dopamine/D5w) 250 mls @ 0 mls/hr IVPB INF [facility] Last Admin: 01/13/18 13:44 Dose: 250 mls Sodium Chloride (Normal Saline 0.9%) 1,000 mls @ 125 mls/hr IV .Q8H [facility] Last Admin: 01/14/18 05:58 Dose: 1,000 mls Labetalol HCl (Normodyne) 20 mg SLOW IVP Q15MIN PRN PRN Reason: SBP GREATER THAN 160 Magnesium Hydroxide (Milk Of Magnesium) 30 ml PO Q12H PRN PRN Reason: Constipation Miscellaneous Information (Communication Order-Pharmacy) 0 each FS ASDIR [facility] Nitroglycerin (Nitrostat) 0.4 mg SL Q5MIN PRN PRN Reason: Chest Pain Discontinue Previous Narcotic Pain Medications And Benzodiazepines 1 each FS .ONE [facility] Stop: 02/12/18 10:32 Pantoprazole Sodium (Protonix) 40 mg IVP Q12HR [facility] Last Admin: 01/13/18 21:07 Dose: 40 mg Propofol (Diprivan) 1,000 mg IV INF PRN; Protocol PRN Reason: TO ACHIEVE GOAL RASS Stop: 02/12/18 10:32 Propofol (Diprivan Bolus) 20 mg IV Q5MIN PRN PRN Reason: BREAKTHROUGH AGITATION Stop: 02/12/18 10:32 Senna (Senokot) 2 tab PO HSPRN PRN PRN Reason: Constipation Sodium Chloride (Flush - Normal Saline) 10 ml IVF Q12HR [facility] Last Admin: 01/13/18 21:08 Dose: Not Given Sodium Chloride (Flush - Normal Saline) 10 ml IVF PRN PRN PRN Reason: Saline Flush Sodium Chloride (Flush - Normal Saline) 10 ml FS Q12HR [facility] Last Admin: 01/13/18 21:09 Dose: 10 ml Ticagrelor (Brilinta) 90 mg PO BID [facility] Last Admin: 01/13/18 21:22 Dose: 90 mg
[2018-01-14] MEDS: Famotidine 20 MG TAB PO SCH (12:38)
[2018-01-14] MEDS: Carvedilol 6.25 MG TAB PO SCH ×2 (12:38→17:22)
[2018-01-14] MEDS: TICAGRELOR 90 MG TABLET PO SCH ×2 (12:39→20:26)
[2018-01-14] MEDS: Pantoprazole 40 MG VIAL IVP SCH (12:39)
[2018-01-14] MEDS: Atorvastatin Calcium 40 MG TAB PO SCH (20:25)
[2018-01-15 05:09] LABS: #Eosinphils 0.1 thou/uL (0.0-0.7); #Lymphocytes 1.2 thou/uL (1.20-3.40); #Monocytes 0.9 thou/uL (0.11-0.59); #Neutrophils 9.9 thou/uL (1.40-6.50); %Basophils 0.2 % (0.0-1.0); %Eosinophils 0.6 % (0.0-10.0); %Lymphocytes 9.7 % (21.0-51.0); %Monocytes 7.4 % (0.0-10.0); %Neutrophils 82.1 % (42.0-75.0); Hemoglobin 10.1 g/dL (14.0-18.0); Mean Corpuscular HGB CONC 33.4 g/dL (32.0-36.0); Mean Corpuscular Hemoglobin 30.7 pg (27.0-31.0); Mean Corpuscular Volume 91.9 fl (80.0-94.0); Platelet Count 164 thou/uL (130-400); RBC Distribution Width 11.6 % (11.5-14.5)
[2018-01-15 05:21] LABS: Anion Gap 10 mmol/L (10-20); BUN (Urea Nitrogen) 27 mg/dL (8.4-25.7); Calc. Creatinine Clearance 86 mL/min (70-130); Calcium 8.3 mg/dL (7.8-10.44); Carbon Dioxide 25 mmol/L (23-31); Chloride 108 mmol/L (98-107); Estimated GFR-MDRD 88; Glucose 96 mg/dL (83-110); Sodium 139 mmol/L (136-145)
--- NOTE | 2018-01-15 07:57 | RAD ---
PORTABLE UPRIGHT FRONTAL CHEST RADIOGRAPH: Date: 01/15/18 COMPARISON: 01/14/18. HISTORY: Pulmonary edema. FINDINGS: The endotracheal tube and nasogastric tube have been removed. There is interstitial and alveolar opac ity noted in bilateral perihilar regions and the medial aspect of both lung bases, right greater than left. Alveolar opacity has worsened slightly bilaterally when compared to the 01/14/18 exam. There i s no pneumothorax or large volume pleural effusion. IMPRESSION: Interstitial and alveolar opacity, consistent with the provided history of pulmonary edema. Aeration is slightly worsened. Continued follow-up advised. POS: KRISTI
[2018-01-15] MEDS: Albuterol Sulfate 1.25 MG/3 ML NEB NEB SCH ×3 (08:06→22:23)
[2018-01-15] MEDS ORDERED: Amlodipine 5 MG TAB PO SCH (09:00)
[2018-01-15] MEDS ORDERED: Furosemide 40 MG/4 ML VIAL SLOW IVP SCH (09:45)
--- NOTE | 2018-01-15 10:47 | PRG ---
DATE OF SERVICE: 01/15/2018 SERVICE: Pulmonary Medicine. INTERVAL HISTORY: The patient did fantastic on BiPAP overnight. This morning, we gave him a little holiday. For 2 hours, he was doing absolutely wonderful. He was stood up and brought to the [facility] on monitor. In the process of this little bit of exertion, he had a rapid decompensation. He got put back in bed, and was put back on BiPAP. Within 5 minutes, he had settled down. He is currently perfectly comfortable. He denies any current shortness of breath, chest pain, nausea, vomiting, feve rs or chills. Otherwise, there has been no interval change to his condition. PHYSICAL EXAMINATION: VITAL SIGNS: Afebrile, pulse 92, blood pressure 142/55, respirations 27, saturation 92% on 27% FiO2 and a PEEP of 5. GENERAL: The patient is awake and alert, no apparent distress. LUNGS: Bilateral crackles are present. They are more pronounced in the dependent and basilar region . HEART: Normal rate, regular. ABDOMEN: Soft, nontender, and nondistended. Bowel sounds are positive. MUSCULOSKELETAL: No cyanosis or clubbing. There is no pitting in the bilateral lower extremities. NEUROLOGIC: Grossly nonfocal. LABORATORY DATA: Basic metabolic profile is completely unremarkable. WBC is down trending 12.0, hem oglobin 10.1, platelets 164,000. IMAGING DATA: Chest x-ray demonstrates bilateral interstitial and alveolar opacifications which are roughly stable, if not slightly worsened compared to yesterday. ASSESSMENT: 1. Acute hypoxic respiratory failure, intermittent. 2. Flash pulmonary edema, recurrent. 3. Acute systolic heart failure. 4. Non-ST elevation myocardial infarction. 5. Hypertensive emergency. DISCUSSION AND PLAN: The patient is moving in the right direction. That being said, we will need to watch him closely for about 24 hours, particularly with exertion. At this point, we can likely guallpa sition to the [facility]. He is on and off of BiPAP. This will need to be placed. Even if his vitals are normal, the patient has increasing shortness of breath, starts to appear dusky, or starts having cou ghing episodes. Good blood pressure control is going to be important to prevent recurrence of these events. We will continue to diurese him. We will follow for the time being.
[2018-01-15] MEDS: Carvedilol 6.25 MG TAB PO SCH ×2 (11:35→17:48)
[2018-01-15] MEDS: TICAGRELOR 90 MG TABLET PO SCH ×2 (11:35→21:12)
[2018-01-15] MEDS: Enoxaparin Sodium 40 MG/0.4 ML SYRINGE SC SCH (11:36)
--- NOTE | 2018-01-15 12:37 | PDOC.PN ---
- Subjective Encounter Start Date: 01/15/18 Encounter Start Time: 12:40 Patient seen and examined. He had catheterization for NSTEMI and subsequently developed respiratory faioure 2/2 flash pulmonary edema. He has no complaints today. No acute events overnight- has been on and off BiPAP. - Objective Resuscitation Status: Resuscitation Status FULL:Full Resuscitation Vital Signs & Weight: Vital Signs (12 hours) Temp Pulse Resp BP Pulse Ox 01/15/18 11:35 94 142/55 H 01/15/18 08:07 94 92 L 01/15/18 08:00 98.0 F 94 20 95 01/15/18 04:00 98.2 F 01/15/18 02:08 75 Weight Weight 192 lb 9.6 oz Most Recent Monitor Data Heart Rate from ECG 88 NIBP 142/55 NIBP BP-Mean 76 Respiration from ECG 19 SpO2 90 I&O: 01/14/18 01/15/18 01/16/18 06:59 06:59 06:59 Intake Total 2433 1445 100 Output Total 1725 635 800 Balance 708 810 -700 Result Diagrams: 01/15/18 04:38 01/15/18 04:38 Phys Exam - Physical Examination HEENT: moist MMs, sclera anicteric, oral pharynx no lesions Neck: no JVD, full ROM Respiratory: no wheezing, no rales, no rhonchi, clear to auscultation bilateral mild crackles b/l basal Cardiovascular: RRR, no significant murmur, no rub Gastrointestinal: soft, non-tender, no distention, positive bowel sounds Musculoskeletal: no edema, pulses present Neurological: non-focal, moves all 4 limbs Psychiatric: normal affect, A&O x 3 Skin: no rash, normal turgor Dx/Plan (1) Acute systolic (congestive) heart failure Code(s): I50.21 - ACUTE SYSTOLIC (CONGESTIVE) HEART FAILURE Status: Acute Comment: EF 30-35% w sclerotic aortic valve. Being diuresed. Will wean off bipap. (2) NSTEMI (non-ST elevated myocardial infarction) Code(s): I21.4 - NON-ST ELEVATION (NSTEMI) MYOCARDIAL INFARCTION Status: Acute Comment: Stable, chest pain free. s/p catheterization. Cards on board, recs appreciated. (3) CAD (coronary artery disease) Code(s): I25.10 - ATHSCL HEART DISEASE OF [place] CORONARY ARTERY W/O ANG PCTRS Status: Chronic Qualifiers: Coronary Disease-Associated Artery/Lesion type: unspecified vessel or lesion type [place] vs. transplanted heart: [place] heart Associated angina: with unstable angina Qualified Code(s): I25.110 - Atherosclerotic heart disease of [place] coronary artery with unstable angina pectoris Comment: Stable. Chest pain free. (4) S/P angioplasty with stent Code(s): Z95.9 - PRESENCE OF CARDIAC AND VASCULAR IMPLANT AND GRAFT, UNSP Status: Acute (5) HTN (hypertension) Code(s): I10 - ESSENTIAL (PRIMARY) HYPERTENSION Status: Chronic Qualifiers: Hypertension type: essential hypertension Qualified Code(s): I10 - Essential (primary) hypertension Comment: Fair control. (6) HLD (hyperlipidemia) Code(s): E78.5 - HYPERLIPIDEMIA, UNSPECIFIED Status: Chronic Qualifiers: Hyperlipidemia type: mixed hyperlipidemia Qualified Code(s): E78.2 - Mixed hyperlipidemia (7) Flash pulmonary edema Code(s): J81.0 - ACUTE PULMONARY EDEMA Status: Resolved - Plan cont current plan of care, plan discussed w/ family, PT/OT, respiratory therapy , DVT proph w/lovenox Continue diuresis Wean off BiPAP Review of Systems - Medications/Allergies Allergies/Adverse Reactions: Allergies Allergy/AdvReac Type Severity Reaction Status Date / Time No Known Allergies Allergy Verified 01/12/18 21:25 Medications: Current Medications Acetaminophen (Tylenol) 650 mg PO Q4H PRN PRN Reason: Headache/Fever or Pain Al Hydroxide/Mg Hydroxide (Maalox) 30 ml PO Q3H PRN PRN Reason: Indigestion Albuterol Sulfate (Albuterol Sulfate) 1.25 mg NEB [id number] [facility] Last Admin: 01/15/18 08:06 Dose: 1.25 mg Amlodipine Besylate (Norvasc) 5 mg PO DAILY [facility] Last Admin: 01/15/18 11:35 Dose: 5 mg Aspirin (Aspirin Chewable) 81 mg PO DAILY [facility] Last Admin: 01/15/18 11:35 Dose: 81 mg Atorvastatin Calcium (Lipitor) 80 mg PO HS [facility] Last Admin: 01/14/18 20:25 Dose: 80 mg Carvedilol (Coreg) 6.25 mg PO BID-WM [facility] Last Admin: 01/15/18 11:35 Dose: 6.25 mg Enoxaparin Sodium (Lovenox) 40 mg SC 0900 [facility] Last Admin: 01/15/18 11:36 Dose: 40 mg Furosemide (Lasix) 40 mg PO DAILY-AC [facility] Hydralazine HCl (Apresoline) 20 mg SLOW IVP Q15MIN PRN PRN Reason: SBP GREATER THAN 160 Labetalol HCl (Normodyne) 20 mg SLOW IVP Q15MIN PRN PRN Reason: SBP GREATER THAN 160 Magnesium Hydroxide (Milk Of Magnesium) 30 ml PO Q12H PRN PRN Reason: Constipation Miscellaneous Information (Communication Order-Pharmacy) 0 each FS ASDIR [facility] Nitroglycerin (Nitrostat) 0.4 mg SL Q5MIN PRN PRN Reason: Chest Pain Discontinue Previous Narcotic Pain Medications And Benzodiazepines 1 each FS .ONE [facility] Stop: 02/12/18 10:32 Senna (Senokot) 2 tab PO HSPRN PRN PRN Reason: Constipation Sodium Chloride (Flush - Normal Saline) 10 ml IVF Q12HR [facility] Last Admin: 01/15/18 11:36 Dose: 10 ml Sodium Chloride (Flush - Normal Saline) 10 ml IVF PRN PRN PRN Reason: Saline Flush Ticagrelor (Brilinta) 90 mg PO BID [facility] Last Admin: 01/15/18 11:35 Dose: 90 mg
--- NOTE | 2018-01-15 14:33 | EKG ---
Test Reason : Blood Pressure : / mmHG Vent. Rate : 080 BPM Atrial Rate : 080 BPM P-R Int : 158 ms QRS Dur : 144 ms QT Int : 426 ms P-R-T Axes : 060 073 021 degrees QTc Int : 491 ms Normal sinus rhythm Right bundle branch block Inferior infarct (cited on or before 12-JAN-2018) Abnormal ECG When compared with ECG of 14-JAN-2018 06:42, No significant change was found Confirmed by DECLAN OLSON ([id number]) on 01/15/2018 2:33:07 PM Referred By: RADHA Confirmed By:DECLAN OLSON
[2018-01-15] MEDS ORDERED: Temazepam 15 MG CAP PO SCH (21:00)
[2018-01-15] MEDS: Atorvastatin Calcium 40 MG TAB PO SCH (21:12)
[2018-01-15] MEDS: Lisinopril 10 MG TAB PO SCH (21:12)
[2018-01-16 04:22] LABS: #Eosinphils 0.1 thou/uL (0.0-0.7); #Lymphocytes 1.3 thou/uL (1.20-3.40); #Monocytes 0.7 thou/uL (0.11-0.59); #Neutrophils 9.1 thou/uL (1.40-6.50); %Basophils 0.3 % (0.0-1.0); %Eosinophils 0.9 % (0.0-10.0); %Lymphocytes 11.5 % (21.0-51.0); %Monocytes 6.2 % (0.0-10.0); %Neutrophils 81.1 % (42.0-75.0); Hemoglobin 9.8 g/dL (14.0-18.0); Mean Corpuscular HGB CONC 33.9 g/dL (32.0-36.0); Mean Corpuscular Hemoglobin 30.9 pg (27.0-31.0); Mean Corpuscular Volume 91.3 fl (80.0-94.0); Mean Platelet Volume 8.1 fL (7.4-10.4); Platelet Count 165 thou/uL (130-400); RBC Distribution Width 11.4 % (11.5-14.5); Red Blood Cell (RBC) Count 3.18 mill/uL (4.70-6.10); White Blood Cell (WBC) Count 11.2 thou/uL (4.8-10.8)
[2018-01-16 04:35] LABS: Anion Gap 13 mmol/L (10-20); BUN (Urea Nitrogen) 28 mg/dL (8.4-25.7); Calc. Creatinine Clearance 86 mL/min (70-130); Calcium 8.6 mg/dL (7.8-10.44); Carbon Dioxide 25 mmol/L (23-31); Chloride 105 mmol/L (98-107); Estimated GFR-MDRD 87; Glucose 90 mg/dL (83-110); Magnesium 1.9 mg/dL (1.6-2.6); Potassium 3.3 mmol/L (3.5-5.1); Sodium 140 mmol/L (136-145)
[2018-01-16] MEDS ORDERED: Albuterol Sulfate 1.25 MG/3 ML NEB ONE (06:23)
[2018-01-16] MEDS: Albuterol Sulfate 1.25 MG/3 ML NEB NEB SCH ×3 (06:25→22:29)
[2018-01-16] MEDS ORDERED: Midazolam HCl 2 mg/2 ml Vial ONE (07:37)
[2018-01-16] MEDS ORDERED: Ketamine 50 MG/ML VIAL ONE (07:38)
--- NOTE | 2018-01-16 07:46 | PRG ---
DATE OF SERVICE: 01/16/2018 I am seeing the patient today in Dr. Murcia's absence. The patient is continuing to use BiPAP inter mittently during the night. He is off the BiPAP as I am talking to him this morning. He seems to be in no distress, has no acute complaints. He is scheduled to have a transesophageal echocardiogram i n a few minutes. PHYSICAL EXAMINATION: VITAL SIGNS: On exam temperature is 98.6, pulse 83, blood pressure 108/45, O2 sat 95%. Total intake 1445, output 635. His weight is currently 191 pounds. HEENT: Unremarkable. NECK: No JVD. LUNGS: He has inspiratory crackles in both bases heard posteriorly. CARDIAC: S1 and S2 with a 2/6 systolic murmur at the left sternal border. ABDOMEN: Soft, nontender. EXTREMITIES: No clubbing, cyanosis or edema. LABORATORY DATA: White blood cell count 11.2, hematocrit of 29.0, platelet count 165. Sodium 140, p otassium 3.3. Sodium 140, potassium 3.3, chloride 105, CO2 25, BUN 20, creatinine 0.8, glucose 90. ASSESSMENT: 1. Myocardial infarction. 2. Acute hypoxic respiratory failure. 3. Acute systolic heart failure. 4. Severe mitral regurgitation. PLAN: 1. Continue current care including BiPAP as needed. 2. Further disposition based on echocardiogram result. 3. Continue strict control of blood pressure and diuretics.
[2018-01-16] MEDS ORDERED: Potassium Chloride 20 MEQ TAB PO SCH (08:00)
--- NOTE | 2018-01-16 08:08 | RAD ---
UPRIGHT PORTABLE CHEST 1 VIEW: Date: 01/16/18 HISTORY: 82-year-old male with history of pulmonary edema. COMPARISON: 01/15/18. FINDINGS: There is marked improvement in the previously noted patchy bilateral alveolar parenchymal changes thr oughout both lungs. There is some persistent diffuse bilateral interstitial and alveolar edema and va scular congestion with minimal cardiomegaly. IMPRESSION: Marked improvement in the extensive bilateral alveolar nodular parenchymal changes. Continue short-te rm follow-up for complete clearing. POS: KRISTI
--- NOTE | 2018-01-16 08:27 | ECHO ---
TRANSESOPHAGEAL ECHOCARDIOGRAM: DATE OF PROCEDURE: 01/16/18 INDICATION: This is an 82-year-old gentleman with myocardial infarction and mitral regurgitation. DESCRIPTION OF PROCEDURE: The patient was taken to the PACU. The patient was sedated by anesthesiology. A transesophageal probe was placed in the distal esophagus and stomach. Echocardiographic images were obtained. The transesophageal probe was removed. FINDINGS: 1. Mild decrease in left ventricular systolic function. 2. Structurally normal mitral and aortic valves. 3. Moderate mitral regurgitation. 4. Mild tricuspid regurgitation. 5. Mild aortic regurgitation. 6. Atherosclerotic debris in the descending aorta. IMPRESSION: Structurally normal mitral valve with moderate mitral regurgitation.
[2018-01-16] MEDS: Furosemide 40 MG TAB PO SCH (09:24)
[2018-01-16] MEDS: Carvedilol 6.25 MG TAB PO SCH ×2 (09:25→16:11)
[2018-01-16] MEDS: Enoxaparin Sodium 40 MG/0.4 ML SYRINGE SC SCH (09:26)
[2018-01-16] MEDS: Lisinopril 10 MG TAB PO SCH ×2 (09:26→21:25)
[2018-01-16] MEDS: TICAGRELOR 90 MG TABLET PO SCH ×2 (09:27→21:25)
--- NOTE | 2018-01-16 11:18 | PDOC.PN ---
- Subjective Encounter Start Date: 01/16/18 Encounter Start Time: 11:21 Patient seen and examined. Admitted for NSTEMI and flash pulmonary edema after LHC. He was intubated and admitted to the ICU for respiratory failure. He is s/ p extubation and doing well. No complaints today. no acute events overnight. - Objective Resuscitation Status: Resuscitation Status FULL:Full Resuscitation MAR Reviewed: Yes Vital Signs & Weight: Vital Signs (12 hours) Temp Pulse Resp BP Pulse Ox 01/16/18 09:26 121/57 L 01/16/18 09:25 121/57 L 01/16/18 08:00 98.1 F 86 16 96 01/16/18 06:29 90 L 01/16/18 06:25 72 15 96 01/16/18 04:00 98.6 F 01/16/18 00:00 98.6 F Weight Weight 191 lb 4.8 oz Most Recent Monitor Data Heart Rate from ECG 76 NIBP 125/46 NIBP BP-Mean 88 Respiration from ECG 15 SpO2 92 I&O: 01/15/18 01/16/18 01/17/18 06:59 06:59 06:59 Intake Total 1445 100 240 Output Total 635 3000 200 Balance 810 -2900 40 Result Diagrams: 01/16/18 03:41 01/16/18 03:41 Phys Exam - Physical Examination Constitutional: NAD HEENT: moist MMs, sclera anicteric, oral pharynx no lesions Neck: no JVD, supple, full ROM Respiratory: no wheezing, no rales, no rhonchi reduced breath sounds. Cardiovascular: RRR, no significant murmur, no rub Gastrointestinal: soft, non-tender, no distention, positive bowel sounds Musculoskeletal: no edema, pulses present Neurological: non-focal, moves all 4 limbs Psychiatric: normal affect, A&O x 3 Skin: no rash, normal turgor Dx/Plan (1) Acute systolic (congestive) heart failure Code(s): I50.21 - ACUTE SYSTOLIC (CONGESTIVE) HEART FAILURE Status: Acute Comment: Stable and doing well. EF improved from 30-35%to 40-455w sclerotic aortic valve. (2) NSTEMI (non-ST elevated myocardial infarction) Code(s): I21.4 - NON-ST ELEVATION (NSTEMI) MYOCARDIAL INFARCTION Status: Acute Comment: Stable, chest pain free. s/p catheterization. Cards on board, recs appreciated. (3) CAD (coronary artery disease) Code(s): I25.10 - ATHSCL HEART DISEASE OF [place] CORONARY ARTERY W/O ANG PCTRS Status: Chronic Qualifiers: Coronary Disease-Associated Artery/Lesion type: unspecified vessel or lesion type [place] vs. transplanted heart: habematolel heart Associated angina: with unstable angina Qualified Code(s): I25.110 - Atherosclerotic heart disease of [place] coronary artery with unstable angina pectoris Comment: Stable. Chest pain free. (4) S/P angioplasty with stent Code(s): Z95.9 - PRESENCE OF CARDIAC AND VASCULAR IMPLANT AND GRAFT, UNSP Status: Acute (5) HTN (hypertension) Code(s): I10 - ESSENTIAL (PRIMARY) HYPERTENSION Status: Chronic Qualifiers: Hypertension type: essential hypertension Qualified Code(s): I10 - Essential (primary) hypertension Comment: Fair control. (6) HLD (hyperlipidemia) Code(s): E78.5 - HYPERLIPIDEMIA, UNSPECIFIED Status: Chronic Qualifiers: Hyperlipidemia type: mixed hyperlipidemia Qualified Code(s): E78.2 - Mixed hyperlipidemia (7) Hypokalemia Code(s): E87.6 - HYPOKALEMIA Status: Acute Comment: 2/2 diuretics. Will replete - Plan cont current plan of care, plan discussed w/ family, respiratory therapy, out of bed/ambulate, DVT proph w/heparin Continue O2 supplementation and BiPAP as needed. Continue diuresis Monitor I/Os Monitor vital signs. Review of Systems - Medications/Allergies Allergies/Adverse Reactions: Allergies Allergy/AdvReac Type Severity Reaction Status Date / Time No Known Allergies Allergy Verified 01/12/18 21:25 Medications: Current Medications Acetaminophen (Tylenol) 650 mg PO Q4H PRN PRN Reason: Headache/Fever or Pain Al Hydroxide/Mg Hydroxide (Maalox) 30 ml PO Q3H PRN PRN Reason: Indigestion Albuterol Sulfate (Albuterol Sulfate) 1.25 mg NEB [id number] [facility] Last Admin: 01/16/18 06:25 Dose: 1.25 mg Aspirin (Aspirin Chewable) 81 mg PO DAILY [facility] Last Admin: 01/16/18 09:25 Dose: 81 mg Atorvastatin Calcium (Lipitor) 80 mg PO HS [facility] Last Admin: 01/15/18 21:12 Dose: 80 mg Carvedilol (Coreg) 6.25 mg PO BID-[facility] Last Admin: 01/16/18 09:25 Dose: 6.25 mg Enoxaparin Sodium (Lovenox) 40 mg SC 09 [facility] Last Admin: 01/16/18 09:26 Dose: 40 mg Furosemide (Lasix) 40 mg PO DAILY-[facility] Last Admin: 01/16/18 09:24 Dose: 40 mg Hydralazine HCl (Apresoline) 20 mg SLOW IVP Q15MIN PRN PRN Reason: SBP GREATER THAN 160 Labetalol HCl (Normodyne) 20 mg SLOW IVP Q15MIN PRN PRN Reason: SBP GREATER THAN 160 Lisinopril (Zestril) 10 mg PO BID [facility] Last Admin: 01/16/18 09:26 Dose: 10 mg Magnesium Hydroxide (Milk Of Magnesium) 30 ml PO Q12H PRN PRN Reason: Constipation Nitroglycerin (Nitrostat) 0.4 mg SL Q5MIN PRN PRN Reason: Chest Pain Discontinue Previous Narcotic Pain Medications And Benzodiazepines 1 each FS .ONE [facility] Stop: 02/12/18 10:32 Potassium Chloride (K-Dur) 20 meq PO QAM-[facility] Senna (Senokot) 2 tab PO HSPRN PRN PRN Reason: Constipation Sodium Chloride (Flush - Normal Saline) 10 ml IVF Q12HR [facility] Last Admin: 01/16/18 09:26 Dose: 10 ml Sodium Chloride (Flush - Normal Saline) 10 ml IVF PRN PRN PRN Reason: Saline Flush Ticagrelor (Brilinta) 90 mg PO BID [facility] Last Admin: 01/16/18 09:27 Dose: 90 mg
[2018-01-16] MEDS ORDERED: Temazepam 15 MG CAP PO SCH (21:15)
[2018-01-16] MEDS: Atorvastatin Calcium 40 MG TAB PO SCH (21:25)
[2018-01-17 05:23] LABS: #Eosinphils 0.2 thou/uL (0.0-0.7); #Lymphocytes 0.9 thou/uL (1.20-3.40); #Monocytes 0.8 thou/uL (0.11-0.59); #Neutrophils 7.8 thou/uL (1.40-6.50); %Basophils 0.3 % (0.0-1.0); %Eosinophils 2.2 % (0.0-10.0); %Lymphocytes 9.1 % (21.0-51.0); %Monocytes 7.7 % (0.0-10.0); %Neutrophils 80.7 % (42.0-75.0); Hemoglobin 9.8 g/dL (14.0-18.0); Mean Corpuscular HGB CONC 34.7 g/dL (32.0-36.0); Mean Corpuscular Hemoglobin 31.8 pg (27.0-31.0); Mean Corpuscular Volume 91.6 fl (80.0-94.0); Mean Platelet Volume 7.8 fL (7.4-10.4); Platelet Count 188 thou/uL (130-400); RBC Distribution Width 11.4 % (11.5-14.5); Red Blood Cell (RBC) Count 3.08 mill/uL (4.70-6.10); White Blood Cell (WBC) Count 9.7 thou/uL (4.8-10.8)
[2018-01-17 05:36] LABS: Anion Gap 14 mmol/L (10-20); BUN (Urea Nitrogen) 28 mg/dL (8.4-25.7); Calc. Creatinine Clearance 79 mL/min (70-130); Calcium 8.5 mg/dL (7.8-10.44); Carbon Dioxide 26 mmol/L (23-31); Chloride 105 mmol/L (98-107); Estimated GFR-MDRD 87; Glucose 83 mg/dL (83-110); Potassium 3.4 mmol/L (3.5-5.1); Sodium 142 mmol/L (136-145)
[2018-01-17] MEDS: Albuterol Sulfate 1.25 MG/3 ML NEB NEB SCH ×3 (06:56→22:01)
[2018-01-17] MEDS: Furosemide 40 MG TAB PO SCH (07:58)
[2018-01-17] MEDS: Carvedilol 6.25 MG TAB PO SCH ×2 (07:58→17:34)
[2018-01-17] MEDS: TICAGRELOR 90 MG TABLET PO SCH ×2 (07:59→21:28)
[2018-01-17] MEDS: Lisinopril 10 MG TAB PO SCH ×2 (07:59→21:28)
[2018-01-17] MEDS: Enoxaparin Sodium 40 MG/0.4 ML SYRINGE SC SCH (08:00)
[2018-01-17] MEDS ORDERED: Potassium Chloride 20 MEQ TAB PO SCH (08:00)
--- NOTE | 2018-01-17 09:54 | PDOC.PN ---
- Subjective Encounter Start Date: 01/17/18 Encounter Start Time: 07:00 Pt seen for followup re: acute systolic CHF. Reports cough, pinkish sputum. No fevers or chills. No nausea or vomiting. Shortness of breath is better. - Objective Resuscitation Status: Resuscitation Status FULL:Full Resuscitation MAR Reviewed: Yes Vital Signs & Weight: Vital Signs (12 hours) Temp Pulse Resp BP BP Pulse Ox 01/17/18 07:59 139/65 01/17/18 07:58 139/65 01/17/18 06:56 80 14 01/17/18 03:50 98.0 F 77 17 135/61 94 L 01/17/18 00:51 93 L Weight Weight 177 lb 9.6 oz Most Recent Monitor Data Heart Rate from ECG 76 NIBP 125/46 NIBP BP-Mean 88 Respiration from ECG 15 SpO2 92 I&O: 01/16/18 01/17/18 01/18/18 06:59 06:59 06:59 Intake Total 100 1100 Output Total 3000 400 Balance -2900 700 Result Diagrams: 01/17/18 04:42 01/17/18 04:42 EKG Reviewed by me: Yes (Tele: NSR) Phys Exam - Physical Examination Constitutional: NAD HEENT: moist MMs, sclera anicteric, oral pharynx no lesions, 2+ tonsils Neck: no nodes, supple, full ROM JVD Respiratory: no wheezing, no rhonchi Donnell crackles Cardiovascular: RRR, no rub S1, S2 Gastrointestinal: soft, non-tender, no distention, positive bowel sounds Neurological: moves all 4 limbs Psychiatric: normal affect, A&O x 3 Skin: no rash Dx/Plan (1) Acute systolic (congestive) heart failure Code(s): I50.21 - ACUTE SYSTOLIC (CONGESTIVE) HEART FAILURE Status: Acute Comment: Increasing oxygen requirements, administer extra dose of lasix (20 mg IV x 1) and check CXR (2) NSTEMI (non-ST elevated myocardial infarction) Code(s): I21.4 - NON-ST ELEVATION (NSTEMI) MYOCARDIAL INFARCTION Status: Acute Comment: stable, s/p cardiac cath (3) Hypokalemia Code(s): E87.6 - HYPOKALEMIA Status: Acute Comment: replace potassium (4) S/P angioplasty with stent Code(s): Z95.9 - PRESENCE OF CARDIAC AND VASCULAR IMPLANT AND GRAFT, UNSP Status: Acute Comment: cardiology following (5) HLD (hyperlipidemia) Code(s): E78.5 - HYPERLIPIDEMIA, UNSPECIFIED Status: Chronic Qualifiers: Hyperlipidemia type: mixed hyperlipidemia Qualified Code(s): E78.2 - Mixed hyperlipidemia Comment: continue statin (6) HTN (hypertension) Code(s): I10 - ESSENTIAL (PRIMARY) HYPERTENSION Status: Chronic Qualifiers: Hypertension type: essential hypertension Qualified Code(s): I10 - Essential (primary) hypertension Comment: controlled and at goal - Plan * . Review of Systems - Review of Systems Constitutional: negative: fever, chills, sweats, weakness, malaise Respiratory: Cough, Hemoptysis, Sputum. negative: Dry, Shortness of Breath, SOB with Excertion, Pleuritic Pain, Wheezing Cardiovascular: negative: chest pain, palpitations, orthopnea, paroxysmal nocturnal dyspnea, edema, light headedness Gastrointestinal: negative: Nausea, Vomiting, Abdominal Pain, Diarrhea, Constipation, Melena, Hematochezia, Other Genitourinary: negative: Dysuria, Frequency, Incontinence, Hematuria, Retention Skin: negative: Rash, Lesions, Kanu, Bruising - Medications/Allergies Allergies/Adverse Reactions: Allergies Allergy/AdvReac Type Severity Reaction Status Date / Time No Known Allergies Allergy Verified 01/12/18 21:25 Medications: Current Medications Acetaminophen (Tylenol) 650 mg PO Q4H PRN PRN Reason: Headache/Fever or Pain Al Hydroxide/Mg Hydroxide (Maalox) 30 ml PO Q3H PRN PRN Reason: Indigestion Albuterol Sulfate (Albuterol Sulfate) 1.25 mg NEB [id number] [facility] Last Admin: 01/17/18 06:56 Dose: 1.25 mg Aspirin (Aspirin Chewable) 81 mg PO DAILY [facility] Last Admin: 01/17/18 07:59 Dose: 81 mg Atorvastatin Calcium (Lipitor) 80 mg PO HS [facility] Last Admin: 01/16/18 21:25 Dose: 80 mg Carvedilol (Coreg) 6.25 mg PO BID-WM [facility] Last Admin: 01/17/18 07:58 Dose: 6.25 mg Enoxaparin Sodium (Lovenox) 40 mg SC 0900 [facility] Last Admin: 01/17/18 08:00 Dose: Not Given Furosemide (Lasix) 40 mg PO DAILY-AC [facility] Last Admin: 01/17/18 07:58 Dose: 40 mg Hydralazine HCl (Apresoline) 20 mg SLOW IVP Q15MIN PRN PRN Reason: SBP GREATER THAN 160 Labetalol HCl (Normodyne) 20 mg SLOW IVP Q15MIN PRN PRN Reason: SBP GREATER THAN 160 Lisinopril (Zestril) 10 mg PO BID [facility] Last Admin: 01/17/18 07:59 Dose: 10 mg Magnesium Hydroxide (Milk Of Magnesium) 30 ml PO Q12H PRN PRN Reason: Constipation Nitroglycerin (Nitrostat) 0.4 mg SL Q5MIN PRN PRN Reason: Chest Pain Discontinue Previous Narcotic Pain Medications And Benzodiazepines 1 each FS .ONE [facility] Stop: 02/12/18 10:32 Potassium Chloride (K-Dur) 20 meq PO QAM-WM [facility] Last Admin: 01/17/18 07:58 Dose: 10 meq Senna (Senokot) 2 tab PO HSPRN PRN PRN Reason: Constipation Sodium Chloride (Flush - Normal Saline) 10 ml IVF Q12HR [facility] Last Admin: 01/17/18 08:01 Dose: 10 ml Sodium Chloride (Flush - Normal Saline) 10 ml IVF PRN PRN PRN Reason: Saline Flush Ticagrelor (Brilinta) 90 mg PO BID [facility] Last Admin: 01/17/18 07:59 Dose: 90 mg
[2018-01-17] MEDS ORDERED: Furosemide 20 MG/2 ML VIAL SLOW IVP SCH (10:15)
--- NOTE | 2018-01-17 14:19 | RAD ---
PA AND LATERAL CHEST: Date: 01/17/18 HISTORY: Shortness of breath COMPARISON: Prior day's exam. FINDINGS: Heart size is enlarged with some mild vascular engorgement, similar to the previous exam. IMPRESSION: Cardiomegaly with pulmonary vascular engorgement. There are minimally increased parahilar lung markin gs suggesting some element of edema. Stable as compared to the prior study. POS: KRISTI
--- NOTE | 2018-01-17 15:24 | PRG ---
DATE OF SERVICE: 01/16/2018. SUBJECTIVE: He is feeling better. He had an episode of hemoptysis morning that was concerning to [facility]. PHYSICAL EXAMINATION: VITAL SIGNS: Temperature 98.1, pulse 80, respirations 14, O2 sat 92% on 3 liters, blood pressure 130 /60. HEENT: Unremarkable. NECK: No adenopathy or JVD. LUNGS: Fairly clear anteriorly. CARDIOVASCULAR: S1, S2 regular. ABDOMEN: Soft. EXTREMITIES: No edema. X-RAY FINDINGS: Chest x-ray shows no acute mass, effusion or infiltrate. LABORATORY DATA: White blood cell count 9.7, hematocrit 28.2, platelet count 188. Sodium 142, potas sium 3.4, chloride 105, CO2 26, BUN 20, creatinine 0.8, glucose 83. ASSESSMENT: 1. Hemoptysis. 2. Status post acute myocardial infarction. 3. Status post acute hypoxic respiratory failure. 4. Severe mitral regurgitation. 5. Continue hypoxemia. PLAN: The hemoptysis is probably secondary to anticoagulation with enoxaparin and the Brilinta in th e face of supplemental oxygen and airway friability. He is also on aspirin. I do not think it is sa fe to stop any of those right now. I think the hemoptysis will probably be self limited. The oxygen is larger issue. I think it will take him a while to wean off the oxygen. He is in a hurry to go o [place] to [place] where his son lives and eventually go back to [facility]. It would be unsafe for him to fly without oxygen. Hopefully, that will change in the next several days.
[2018-01-17] MEDS: Atorvastatin Calcium 40 MG TAB PO SCH (21:28)
[2018-01-17] MEDS ORDERED: Temazepam 15 MG CAP PO SCH (22:00)
[2018-01-18 06:09] LABS: #Eosinphils 0.3 thou/uL (0.0-0.7); #Lymphocytes 1.2 thou/uL (1.20-3.40); #Monocytes 0.8 thou/uL (0.11-0.59); #Neutrophils 6.6 thou/uL (1.40-6.50); %Basophils 0.5 % (0.0-1.0); %Eosinophils 3.1 % (0.0-10.0); %Lymphocytes 13.3 % (21.0-51.0); %Monocytes 8.8 % (0.0-10.0); %Neutrophils 74.3 % (42.0-75.0); Hemoglobin 10.6 g/dL (14.0-18.0); Mean Corpuscular HGB CONC 34.6 g/dL (32.0-36.0); Mean Corpuscular Hemoglobin 31.4 pg (27.0-31.0); Mean Corpuscular Volume 90.9 fl (80.0-94.0); Mean Platelet Volume 7.4 fL (7.4-10.4); Platelet Count 217 thou/uL (130-400); RBC Distribution Width 11.5 % (11.5-14.5); Red Blood Cell (RBC) Count 3.38 mill/uL (4.70-6.10); White Blood Cell (WBC) Count 8.8 thou/uL (4.8-10.8)
[2018-01-18 06:19] LABS: Anion Gap 16 mmol/L (10-20); BUN (Urea Nitrogen) 28 mg/dL (8.4-25.7); Calc. Creatinine Clearance 82 mL/min (70-130); Calcium 8.8 mg/dL (7.8-10.44); Carbon Dioxide 26 mmol/L (23-31); Chloride 103 mmol/L (98-107); Estimated GFR-MDRD 90; Glucose 104 mg/dL (83-110); Potassium 3.4 mmol/L (3.5-5.1); Sodium 142 mmol/L (136-145)
[2018-01-18] MEDS: Albuterol Sulfate 1.25 MG/3 ML NEB NEB SCH ×3 (06:43→21:22)
[2018-01-18] MEDS: Furosemide 40 MG TAB PO SCH (07:37)
[2018-01-18] MEDS: Carvedilol 6.25 MG TAB PO SCH ×2 (07:37→16:18)
[2018-01-18] MEDS: Enoxaparin Sodium 40 MG/0.4 ML SYRINGE SC SCH (09:03)
[2018-01-18] MEDS: Lisinopril 10 MG TAB PO SCH ×2 (09:04→21:00)
[2018-01-18] MEDS: TICAGRELOR 90 MG TABLET PO SCH ×2 (09:04→21:00)
--- NOTE | 2018-01-18 09:20 | PDOC.PN ---
- Subjective Encounter Start Date: 01/18/18 Encounter Start Time: 07:00 Pt seen for followup re: acute systolic CHF. Denies chest pain, shortness of breath, fevers or chills. No nausea or vomiting. No hemoptysis or epistaxis. - Objective Resuscitation Status: Resuscitation Status FULL:Full Resuscitation MAR Reviewed: Yes Vital Signs & Weight: Vital Signs (12 hours) Temp Pulse Resp BP BP BP Pulse Ox 01/18/18 07:31 97.8 F 74 18 128/58 L 96 01/18/18 06:43 70 12 01/18/18 03:11 97.6 F 64 20 143/65 H 93 L 01/18/18 00:26 96 01/17/18 22:01 66 16 96 01/17/18 21:28 134/63 Weight Weight 174 lb 1.6 oz Most Recent Monitor Data Heart Rate from ECG 76 NIBP 125/46 NIBP BP-Mean 88 Respiration from ECG 15 SpO2 92 I&O: 01/17/18 01/18/18 01/19/18 06:59 06:59 06:59 Intake Total 1100 1342 Output Total 400 Balance 700 1342 Result Diagrams: 01/19/18 04:41 01/19/18 04:41 EKG Reviewed by me: Yes (Tele: NSR) Phys Exam - Physical Examination Constitutional: NAD HEENT: moist MMs Neck: supple Donnell crackles Cardiovascular: RRR Gastrointestinal: non-tender Neurological: moves all 4 limbs Psychiatric: normal affect, A&O x 3 Dx/Plan (1) Acute systolic (congestive) heart failure Code(s): I50.21 - ACUTE SYSTOLIC (CONGESTIVE) HEART FAILURE Status: Acute Comment: Pt is on 3LPM oxygen, will administer 40 mg furosemide IV. (2) NSTEMI (non-ST elevated myocardial infarction) Code(s): I21.4 - NON-ST ELEVATION (NSTEMI) MYOCARDIAL INFARCTION Status: Acute Comment: s/p cardiac cath (3) Hypokalemia Code(s): E87.6 - HYPOKALEMIA Status: Acute Comment: replace potassium (4) S/P angioplasty with stent Code(s): Z95.9 - PRESENCE OF CARDIAC AND VASCULAR IMPLANT AND GRAFT, UNSP Status: Acute Comment: cardiology following (5) HLD (hyperlipidemia) Code(s): E78.5 - HYPERLIPIDEMIA, UNSPECIFIED Status: Chronic Qualifiers: Hyperlipidemia type: mixed hyperlipidemia Qualified Code(s): E78.2 - Mixed hyperlipidemia Comment: on statin (6) HTN (hypertension) Code(s): I10 - ESSENTIAL (PRIMARY) HYPERTENSION Status: Chronic Qualifiers: Hypertension type: essential hypertension Qualified Code(s): I10 - Essential (primary) hypertension Comment: stable - Plan * . Review of Systems - Review of Systems Respiratory: Hemoptysis. negative: Cough, Shortness of Breath, SOB with Excertion, Sputum, Wheezing Cardiovascular: negative: chest pain, palpitations, orthopnea, paroxysmal nocturnal dyspnea, edema, light headedness - Medications/Allergies Allergies/Adverse Reactions: Allergies Allergy/AdvReac Type Severity Reaction Status Date / Time No Known Allergies Allergy Verified 01/12/18 21:25 Medications: Current Medications Acetaminophen (Tylenol) 650 mg PO Q4H PRN PRN Reason: Headache/Fever or Pain Al Hydroxide/Mg Hydroxide (Maalox) 30 ml PO Q3H PRN PRN Reason: Indigestion Albuterol Sulfate (Albuterol Sulfate) 1.25 mg NEB [id number] [facility] Last Admin: 01/18/18 06:43 Dose: 1.25 mg Aspirin (Aspirin Chewable) 81 mg PO DAILY [facility] Last Admin: 01/18/18 09:03 Dose: 81 mg Atorvastatin Calcium (Lipitor) 80 mg PO HS [facility] Last Admin: 01/17/18 21:28 Dose: 80 mg Carvedilol (Coreg) 6.25 mg PO BID-WM [facility] Last Admin: 01/18/18 07:37 Dose: 6.25 mg Enoxaparin Sodium (Lovenox) 40 mg SC 0900 [facility] Last Admin: 01/18/18 09:03 Dose: 40 mg Furosemide (Lasix) 40 mg PO DAILY-AC [facility] Last Admin: 01/18/18 07:37 Dose: 40 mg Hydralazine HCl (Apresoline) 20 mg SLOW IVP Q15MIN PRN PRN Reason: SBP GREATER THAN 160 Labetalol HCl (Normodyne) 20 mg SLOW IVP Q15MIN PRN PRN Reason: SBP GREATER THAN 160 Lisinopril (Zestril) 10 mg PO BID [facility] Last Admin: 01/18/18 09:04 Dose: 10 mg Magnesium Hydroxide (Milk Of Magnesium) 30 ml PO Q12H PRN PRN Reason: Constipation Nitroglycerin (Nitrostat) 0.4 mg SL Q5MIN PRN PRN Reason: Chest Pain Discontinue Previous Narcotic Pain Medications And Benzodiazepines 1 each FS .ONE [facility] Stop: 02/12/18 10:32 Potassium Chloride (Klor-Con) 20 meq PO QAM-WM [facility] Last Admin: 01/18/18 07:37 Dose: 20 meq Potassium Chloride (K-Dur) 40 meq PO ONE [facility] Senna (Senokot) 2 tab PO HSPRN PRN PRN Reason: Constipation Sodium Chloride (Flush - Normal Saline) 10 ml IVF Q12HR [facility] Last Admin: 01/18/18 09:04 Dose: 10 ml Sodium Chloride (Flush - Normal Saline) 10 ml IVF PRN PRN PRN Reason: Saline Flush Last Admin: 01/17/18 12:24 Dose: 10 ml Ticagrelor (Brilinta) 90 mg PO BID [facility] Last Admin: 01/18/18 09:04 Dose: 90 mg
[2018-01-18] MEDS ORDERED: Furosemide 40 MG/4 ML VIAL SLOW IVP SCH (09:30)
[2018-01-18] MEDS ORDERED: Potassium Chloride 20 MEQ TAB PO SCH (09:30)
--- NOTE | 2018-01-18 16:50 | PRG ---
DATE OF SERVICE: 01/18/2018 SUBJECTIVE: The patient seems to be doing reasonably well. His oxygen has been weaned down to 1 lit er. OBJECTIVE: VITAL SIGNS: Temperature 97.7, pulse 77, respirations 16, O2 sat 98%, blood pressure 120/58. HEENT: Unremarkable. NECK: No JVD. CHEST: Clear. CARDIAC: S1 and S2 regular. ABDOMEN: Soft. EXTREMITIES: No edema. LABORATORY DATA: White blood cell count 8.8, hematocrit 30.8, platelet count 217. Sodium 142, potas sium 3.4, BUN 28, creatinine 0.8, glucose 104. ASSESSMENT: 1. Self-limited hemoptysis - probably exacerbated by current need for anticoagulation. 2. Status post acute myocardial infarction. 3. Status post acute hypoxic respiratory failure. 4. Severe mitral regurgitation. PLAN: He is weaning off the oxygen slowly. He is eager to travel out to [place] and then subsequ ently to [facility], I told him it is too early to tell in terms of discharge date.
[2018-01-18] MEDS ORDERED: Temazepam 15 MG CAP PO PRN (20:40)
--- NOTE | 2018-01-18 20:41 | PDOC.EVN ---
Event Note - Event Note Event Note: asked by RN for order for restoril 15 mg - pt received last night and responded well, unable to sleep in the hospital. Will order this for prn use here, and requested that daytime RN tomorrow clarify with attending whether or not to continue the order. No questions or further needs.
[2018-01-18] MEDS: Atorvastatin Calcium 40 MG TAB PO SCH (21:01)
[2018-01-19 05:43] LABS: #Eosinphils 0.3 thou/uL (0.0-0.7); #Lymphocytes 1.3 thou/uL (1.20-3.40); #Monocytes 0.7 thou/uL (0.11-0.59); #Neutrophils 5.9 thou/uL (1.40-6.50); %Basophils 0.2 % (0.0-1.0); %Eosinophils 3.2 % (0.0-10.0); %Lymphocytes 15.6 % (21.0-51.0); %Monocytes 8.6 % (0.0-10.0); %Neutrophils 72.5 % (42.0-75.0); Hemoglobin 11.2 g/dL (14.0-18.0); Mean Corpuscular HGB CONC 34.4 g/dL (32.0-36.0); Mean Corpuscular Hemoglobin 31.4 pg (27.0-31.0); Mean Corpuscular Volume 91.2 fl (80.0-94.0); Mean Platelet Volume 7.9 fL (7.4-10.4); Platelet Count 250 thou/uL (130-400); RBC Distribution Width 11.5 % (11.5-14.5); Red Blood Cell (RBC) Count 3.56 mill/uL (4.70-6.10); White Blood Cell (WBC) Count 8.1 thou/uL (4.8-10.8)
[2018-01-19 06:21] LABS: Anion Gap 17 mmol/L (10-20); BUN (Urea Nitrogen) 30 mg/dL (8.4-25.7); Calc. Creatinine Clearance 74 mL/min (70-130); Calcium 9.4 mg/dL (7.8-10.44); Carbon Dioxide 26 mmol/L (23-31); Chloride 104 mmol/L (98-107); Estimated GFR-MDRD 82; Glucose 102 mg/dL (83-110); Potassium 3.6 mmol/L (3.5-5.1); Sodium 143 mmol/L (136-145)
[2018-01-19] MEDS: Albuterol Sulfate 1.25 MG/3 ML NEB NEB SCH (07:12)
[2018-01-19] MEDS: Carvedilol 6.25 MG TAB PO SCH (07:25)
[2018-01-19] MEDS: Furosemide 40 MG TAB PO SCH (07:25)
[2018-01-19] MEDS: Lisinopril 10 MG TAB PO SCH (09:28)
[2018-01-19] MEDS: TICAGRELOR 90 MG TABLET PO SCH (09:28)
[2018-01-19] MEDS: Enoxaparin Sodium 40 MG/0.4 ML SYRINGE SC SCH (09:28)
[2018-01-19 11:31] VITALS: BP 119/57; TEMP 97.8
--- NOTE | 2018-01-19 13:36 | PRG ---
DATE OF SERVICE: 01/19/2018 SERVICE: Pulmonary Medicine INTERVAL HISTORY: The patient is doing fine from a cardiovascular and respiratory standpoint. He is breathing comfortably. He is on room air. He denies any shortness of breath or chest discomfort. Otherwise, he is returning to his usual state of health. PHYSICAL EXAMINATION: VITAL SIGNS: Afebrile, pulse 73, blood pressure 119/57, respirations 18, saturation 95% on room air. GENERAL: The patient is awake, alert, in no apparent distress. LUNGS: Decent air entry. There are some crackles present. No prolonged expiratory phase or wheezin g is otherwise appreciated. HEART: Normal rate, regular. ABDOMEN: Soft, nontender, nondistended. Bowel sounds are positive. MUSCULOSKELETAL: No cyanosis or clubbing. There is no pitting in the bilateral lower extremities. NEUROLOGIC: Grossly nonfocal. LABORATORY DATA: WBC 8.1, hemoglobin 11.2, platelets 250,000. PH 7.31, pCO2 43.8, pO2 85. Basic me tabolic profile is otherwise completely unremarkable. Potassium is 3.6. ASSESSMENT: 1. Acute hypoxic respiratory failure. 2. Flash pulmonary edema, resolved. 3. Acute systolic heart failure. 4. Non-ST elevation myocardial infarction. 5. Hypertensive emergency. DISCUSSION AND PLAN: At this point, the patient is off of oxygen. He has returned to his usual stat e of health and has been able to get up and ambulate. From a purely lung perspective, nothing is yasmin ping him here in the hospital. His intentions are to go directly from the hospital to the airport to catch a flight. I did warn him that at simulated 8000 feet of elevation, he may have an abrupt resp iratory decompensation. I suggested additional investigation may be warranted in order to determine whether or not it is safe for air travel at this time, but he is not interested in pursuing that at t his time.
--- NOTE | 2018-01-19 13:43 | DIS ---
PRIMARY CARE PHYSICIAN: Unknown, in [place]. DATE OF ADMISSION: 01/12/2018 DATE OF DISCHARGE: 01/19/2018 DISCHARGE DIAGNOSES: 1. Non-ST elevation myocardial infarction. 2. Acute hypoxic respiratory failure. 3. Flash pulmonary edema. 4. Acute systolic heart failure. 5. Hypertensive emergency. CONDITION OF PATIENT ON THE DAY OF DISCHARGE: Stable. I assessed Mr. Valdez on the day of discharge. He denies any chest pain or shortness of breath. Vital signs are stable, he is maintaining good ox ygen saturations on room air. S1 and S2 are heard, regular. Lungs are clear to auscultation bilater ally. DISCHARGE MEDICATIONS: Aspirin 81 mg daily, Lipitor 80 mg at bedtime, Coreg 6.25 mg 2 times a day, L asix 40 mg daily, lisinopril 10 mg 2 times a day, ____ 0.4 mg daily, potassium chloride 10 mEq daily, and Brilinta 90 mg 2 times a day. HOSPITAL COURSE: Mr. Valdez is a pleasant 82-year-old gentleman who was admitted to [facility] on 01/12/2018 for non-ST elevation myocardial infarction. On 01/13/2018 he underwen t cardiac catheterization. He was found to have 3-vessel coronary artery disease, moderately impaire d left ventricular function and he underwent PCI with drug-eluting stent of the proximal first obtuse marginal artery, in-stent restenosis and OM1 thrombectomy. Following cardiac catheterization the charlie carrasco developed flash pulmonary edema. He was intubated and transferred to Intensive Care Unit. On 01/14/2018, he was extubated, then switched to BiPAP overnight. He was treated with diuretics. On 0 01/15/2018, left ventricular ejection fraction by 2D echocardiogram was 40-45%. He had severe mitral regurgitation. On 01/16/2018, he underwent JENNIFER, which showed a structurally normal mitral valve with moderate mitral regurgitation. He was transferred to telemetry floor that day. He was continued on diuretics. He continued to be hypoxic. On 01/19/2018, his hypoxia resolved. He is being discharge d home in a stable condition. CONSULTATIONS DURING THIS HOSPITALIZATION: Cardiology, Dr. Moss and Pulmonology, Dr. Murcia. On the day of discharge, he has a normal white count, normocytic anemia with hemoglobin 11.2, normal platelet count, normal electrolytes, elevated blood urea nitrogen of 30 and a normal creatinine. Dur ing this hospitalization, he had triglycerides 100, cholesterol 176, LDL cholesterol 112, and HDL cho lesterol 44. Many thanks for allowing me to participate in Mr. Valdez's care. Please feel free to contact me with any questions or concerns. DISCHARGE DESTINATION: Home. TOTAL AMOUNT OF TIME SPENT COORDINATING THIS DISCHARGE: 33 minutes.
[2018-01-20] MEDS ORDERED: Potassium Chloride 20 MEQ TAB PO SCH (08:00)
== END 2018-01-19 14:13 | disposition home or self-care (01) | DRG 246 ==
LOC: 2SW 20:26 → UNDOADMOB 20:26 → 2SW 20:50 → OBSVTOIN 20:50 → 2NO 01-13 08:26 → CCU 01-13 12:37 → 2NO 01-16 11:25
PROVIDERS: ADMIT Emergency Medicine; ATTEND Emergency Medicine
PROC: 02C03ZZ Extirpation of Matter from Coronary Artery, One Artery, Percutaneous Approach (ICD-10-PCS; principal; 2018-01-13)
PROC: 027034Z Dilation of Coronary Artery, One Artery with Drug-eluting Intraluminal Device, Percutaneous Approach (ICD-10-PCS; 2018-01-13)
PROC: 5A1935Z Respiratory Ventilation, Less than 24 Consecutive Hours (ICD-10-PCS; 2018-01-13)
PROC: 0BH18EZ Insertion of Endotracheal Airway into Trachea, Via Natural or Artificial Opening Endoscopic (ICD-10-PCS; 2018-01-13)
PROC: 4A023N7 Measurement of Cardiac Sampling and Pressure, Left Heart, Percutaneous Approach (ICD-10-PCS; 2018-01-13)
PROC: B215YZZ Fluoroscopy of Left Heart using Other Contrast (ICD-10-PCS; 2018-01-13)
PROC: B211YZZ Fluoroscopy of Multiple Coronary Arteries using Other Contrast (ICD-10-PCS; 2018-01-13)
PROC: 3E033GC Introduction of Other Therapeutic Substance into Peripheral Vein, Percutaneous Approach (ICD-10-PCS; 2018-01-13)
PROC: 3E053PZ Introduction of Platelet Inhibitor into Peripheral Artery, Percutaneous Approach (ICD-10-PCS; 2018-01-13)
PROC: 5A09357 Assistance with Respiratory Ventilation, Less than 24 Consecutive Hours, Continuous Positive Airway Pressure (ICD-10-PCS; 2018-01-14)
DX: I21.4 Non-ST elevation (NSTEMI) myocardial infarction (principal); J96.01 Acute respiratory failure with hypoxia; I50.21 Acute systolic (congestive) heart failure; T82.855A Stenosis of coronary artery stent, initial encounter; T82.867A Thrombosis due to cardiac prosthetic devices, implants and grafts, initial encounter; I47.2 Ventricular tachycardia; I16.1 Hypertensive emergency; E87.6 Hypokalemia; T50.2X5A Adverse effect of carbonic-anhydrase inhibitors, benzothiadiazides and other diuretics, initial encounter; Y92.239 Unspecified place in hospital as the place of occurrence of the external cause; I25.110 Atherosclerotic heart disease of native coronary artery with unstable angina pectoris; I34.0 Nonrheumatic mitral (valve) insufficiency; E78.2 Mixed hyperlipidemia; I10 Essential (primary) hypertension; I70.0 Atherosclerosis of aorta; Y83.1 Surgical operation with implant of artificial internal device as the cause of abnormal reaction of the patient, or of later complication, without mention of misadventure at the time of the procedure; Z95.5 Presence of coronary angioplasty implant and graft; Y92.9 Unspecified place or not applicable; I25.2 Old myocardial infarction; Z86.79 Personal history of other diseases of the circulatory system; Z79.82 Long term (current) use of aspirin; Z79.899 Other long term (current) drug therapy; Z82.49 Family history of ischemic heart disease and other diseases of the circulatory system; Z91.14 Patient's other noncompliance with medication regimen
CPT/HCPCS: 36415; 71045; 71046; 80048; 80053; 80061; 82553; 82805; 83735; 84484; 85025; 85347; 92933; 92973; 92977; 93005; 93010; 93306; 93312; 93458; 94002; 94003; 94660; 94760; 99152; 99153; A4216; C1757; C1769; C1874; C1887; C9113; C9602; G8978-GP-CJ; G8979-GP-CJ; G8980-GP-CJ; J1200; J1265; J1644; J1650; J1720; J1940; J2001; J2250; J2270; J3010; J3246; J3475; J7050